=== PATIENT | male | born 1955 | race Caucasian/White ===

== ENCOUNTER 2020-01-11 08:48 | Inpatient (IN) | payer OTHER, SELFPAY ==
[2020-01-11] VITALS (12 sets, daily range): BP systolic 153–187; BP diastolic 75–103; PULSE 16–68; RESP 12–59; TEMP 35.9–36.8; O2SAT 97–99; BMI 26.0
--- NOTE | ~2020-01-11 | XR_ITS ---
XR chest 1V portable DATE: 01/11/2020 10:01 INDICATION: Chest pain TECHNIQUE: Portable AP chest on 01/11/2020 at 0958 hours COMPARISON: None FINDINGS: Normal heart size. Aortic arch calcification. No hilar or mediastinal enlargement. There is mild elevation of the right leaf of the diaphragm. No pulmonary infiltrate or consolidation, pleural effusion or pulmonary vascular congestion or pneumo thorax is detected. DEXA scoliosis and degenerative spurring of the thoracic spine. Osteoarthritic change at the included left glenohumeral joint. IMPRESSION: No active cardiopulmonary disease Reviewed, dictated and finalized at location A.
--- NOTE | 2020-01-11 08:59 | ECG_ITS ---
Measurements Intervals [place] Rate: 64 P: 14 DC: 187 QRS: -27 QRSD: 120 T: -12 QT: 400 QTc: 413 Interpretive Statements SINUS RHYTHM INTRAVENTRICULAR CONDUCTION DELAY VOLTAGE CRITERIA FOR LVH NONSPECIFIC ST & T-WAVE ABNORMALITY- INF/LAT LEADS BASELINE WANDER- I, II, V3 BORDERLINE ECG Electronically Signed On 01-11-2020 9:46:53 CDT by Hari Henry D.O.
--- NOTE | 2020-01-11 09:00 | ED.CHESTPAIN ---
HPI - Chest Pain General Chief Complaint: Chest Pain Stated Complaint: Chest Pain Time Seen by Provider: 01/11/20 08:51 Source: RN notes reviewed History of Present Illness HPI narrative: Patient presents emergency department from home for chest pain. Patient states that pain woke him from sleep this morning. He states pain was across the bilateral lower chest described as a pressure. Pain was associated with shortness of breath. States pain is improved at this time. He denies any fevers or chills abdominal pain nausea vomiting or any other symptoms. Patient states he does smoke and has a history of high blood pressure denies any previous cardiac history. Patient states the pain did not radiate. States he took his lisinopril this morning prior to coming into the emergency department Related Data Home Medications Medication Instructions Recorded Confirmed lisinopril 01/11/20 Allergies Allergy/AdvReac Type Severity Reaction Status Date / Time No Known Allergies Allergy Verified 01/11/20 09:11 Review of Systems Review of Systems: Narrative: Gen.: Denies fevers or chills ENT: Denies congestion Respiratory: Reports shortness of breath CV: Reports chest pain GI: Denies abdominal pain nausea, emesis or diarrhea Musculoskeletal: Denies back pain or muscle pain Neuro: Denies numbness, tingling, weakness or focal weakness Skin: Denies rash Except as documented, all other systems reviewed and negative [facility] Past Medical History Medical History (Updated 01/11/20 @ 10:19 by Lloyd Peña DO) Hypertension Social History Social History (Updated 01/11/20 @ 09:01 by Lloyd Peña DO) Smoking packs per day: 0.5 Smoking cigarettes per day: 10.0 Alcohol intake: current Gender identity (if verbalized by the patient): Male Exam Narrative: Exam Narrative: APPEARANCE: No acute distress, nontoxic, resting in bed EYES: EOMI HEENT: Normocephalic, atraumatic, OMM RESPIRATORY: No respiratory distress Clear to auscultation bilaterally with no rhonchi wheezing or rales. CARDIOVASCULAR: Regular rate and rhythm without murmurs rubs or gallops. ABDOMINAL: Soft, nondistended, mild tenderness epigastric region, no tenderness right upper quadrant, left upper quadrant, right lower quadrant left lower quadrant, rebound or guarding MUSCULOSKELETAl: Moves all extremities. No clubbing, cyanosis or edema. NEURO: Awake and alert. Following commands, speech normal, no focal deficits SKIN:: Warm, dry. No rashes lesions or abrasions PSYCHIATRIC: Normal affect/mood, Course Course Emergency Course: Patient states chest pain is resolved at this time Discussed with Dr. Corcoran presentation work-up. Agrees with consult. Request patient started metoprolol 25 mg every 12 as well as given dose of Lovenox in ED Discussed with Dr. Payan presentation and work-up agrees with admission at this time Discussed with patient and family results of workup and diagnosis. Discussed need for admission. Patient and family understand and agree to current treatment plan Vital Signs Vital signs: Vital Signs Temperature 98.2 F 01/11/20 09:05 Pulse Rate 64 01/11/20 09:05 Respiratory Rate 12 01/11/20 09:05 Blood Pressure 187/103 H 01/11/20 09:05 Pulse Oximetry 99 01/11/20 09:05 Temperature 98.2 F 01/11/20 09:05 Pulse Rate 62 01/11/20 09:48 Respiratory Rate 15 01/11/20 09:48 Blood Pressure 155/97 H 01/11/20 09:48 Pulse Oximetry 97 01/11/20 09:48 MDM - Chest Pain Lab Data Result diagrams: 01/11/20 09:06 01/11/20 09:06 Labs: Lab Results 01/11/20 01/11/20 01/11/20 Range/Units 09:06 09:06 09:06 WBC 5.9 (4.5-10.0) K/mm3 RBC 4.33 L (4.6-6.20) M/mm3 Hgb 15.0 (14.0-18.0) g/dL Hct 44.1 (42.0-52.0) % MCV 101.8 H (80-100) fl MCH 34.6 H (26-34) pg MCHC 34.0 (32-36) g/dl RDW 11.7 (11.5-14.5) % Plt Count 201 (150-375) k/mm3 MPV
[2020-01-11 09:11] LABS: Basophils Absolute Auto 0.1 K/mm3 (0.0-0.1); Eosinophils Absolute Auto 0.3 K/mm3 (0-0.3); Eosinophils Percent Auto 4.5 % (0-4.4); Hematocrit 44.1 % (42.0-52.0); Immature Granulocyte Absolute 0.01 K/mm3 (0.00-0.031); Immature Granulocyte Percent A 0.2 % (0-0.5); Lymphocytes Absolute Auto 1.62 K/mm3 (0.9-3.2); Lymphocytes Percent Auto 27.3 % (18.3-44.2); Mean Corpuscular Hemoglobin 34.6 pg (26-34); Mean Corpuscular Volume 101.8 fl (80-100); Mean Platelet Volume 9.4 fl (7.4-10.4); Monocytes Absolute Auto 0.6 K/mm3 (0.1-0.6); Monocytes Percent Auto 9.4 % (2.6-8.5); Neutrophils Absolute Auto 3.4 K/mm3 (1.3-6.7); Neutrophils Percent Auto 57.6 % (45.5-73.1); Platelet Count Result 201 k/mm3 (150-375); Red Blood Count 4.33 M/mm3 (4.6-6.20); Red Cell Distribution Width 11.7 % (11.5-14.5); White Blood Count 5.9 K/mm3 (4.5-10.0)
[2020-01-11 09:21] LABS: Prothrombin Time 13.1 Seconds (11.1-14.7)
[2020-01-11 09:22] LABS: Partial Thromboplastin Time 26.7 SECONDS (22.3-36.8)
[2020-01-11 09:25] LABS: Alanine Aminotransferase 24 U/L (4-50); Albumin Level 4.3 g/dL (3.5-5.1); Alkaline Phosphatase 83 U/L (38-126); Aspartate Amino Transferase 30 U/L (17-59); Bilirubin,Total 0.4 mg/dL (0.2-1.3); Blood Urea Nitrogen 14 mg/dL (9-20); Calcium 9.1 mg/dL (8.4-10.2); Carbon Dioxide 26 mmol/L (22-30); Chloride 105 mmol/L (98-107); Estimated CRCL calculation 78 ml/min; Estimated Glomerular Filt Rate > 60; Glucose 102 mg/dL (75-110); Lipase 300 U/L (23-300); Potassium 4.3 mmol/L (3.4-5.0); Sodium 139 mmol/L (137-145)
[2020-01-11 09:38] LABS: Troponin I 0.052 ng/mL (0.000-0.034)
--- NOTE | 2020-01-11 09:40 | ECG_ITS ---
Measurements Intervals [place] Rate: 60 P: 28 MD: 205 QRS: -20 QRSD: 106 T: 3 QT: 408 QTc: 409 Interpretive Statements SINUS RHYTHM BORDERLINE ST-T WAVE ABNORMALITY- INF/LAT LEADS BORDERLINE ECG Electronically Signed On 01-11-2020 9:47:54 CDT by Hari Henry D.O.
[2020-01-11] MEDS: ASPIRIN 81 MG CHEWABLE TABLET 324 MG PO (09:46)
[2020-01-11] MEDS: METOPROLOL TARTRATE 25 MG TABLET PO ×2 (10:25→21:54)
[2020-01-11] MEDS: ENOXAPARIN 100 MG/ML SYRINGE 93 MG SUB-Q (10:26)
--- NOTE | 2020-01-11 11:19 | ADMGEN ---
This patient, David Canales, was admitted to IMU Room 213-01 at 1120 on 01/11/2020. Patient/family oriented to hospital policies and general routines including ID bracelet, bed and alarms, visiting hours, pain management, procedures, bathroom and other care routines, personal items, smoking policy, room service/diet, and visiting hours. Valuables list has been completed. Information on how to activate the Rapid Response Team has been discussed. Patient/Family are encouraged to report perceived risks to care and to ask questions if they do not understand what they are told or what they should do.
[2020-01-11 12:12] LABS: Troponin I 0.193 ng/mL (0.000-0.034)
[2020-01-11 15:25] LABS: Troponin I 0.296 ng/mL (0.000-0.034)
[2020-01-11] MEDS: ACETAMINOPHEN 325 MG TABLET PO ×2 (16:02→21:54)
--- NOTE | 2020-01-11 16:29 | PM.IMPN ---
Progress Note: A&P Assessment and Plan (1) Acute non-ST elevation myocardial infarction (NSTEMI): Code(s): I21.4 - Non-ST elevation (NSTEMI) myocardial infarction Status: Acute Assessment and Plan: Elevated troponin, symptomatic patient. Pt has been given metoprolol and lovenox awaiting cardiology consultation. History of HTN, history of smoking and positive FH of mother and father had bypass. EKG shows- BORDERLINE ST-T WAVE ABNORMALITY- INF/LAT LEADS. BORDERLINE ECG Serial troponins, telemetry Metoprolol, ASA ad lovenox (2) Hypertension: Code(s): I10 - Essential (primary) hypertension Status: Acute Assessment and Plan: BP is 175/90 pt is on lisinopril continue to monitor BPs (3) Smoker: Code(s): F17.200 - Nicotine dependence, unspecified, uncomplicated Status: Acute Assessment and Plan: Pt is a smoker 1 pack a week , refuses nictone patch in the hospital Subjective Date/time seen: 01/11/20 16:29 Interval history: Pt had severe chest pain which woke him up @730 am. Pt felt it like a suffocation in his chest Never had chest pain like this before pt has had sinus infection and hayfever Has history of BP and shoulder pain Pt never had any cardiac work up before Pt denies cough, SOB or fever Pt feels better after metoprolol and lovenox given in ED Review of Systems Constitutional: Constitutional: Denies body ache(s), Denies chills and Denies fatigue Cardiovascular: Cardiovascular: Denies no additional cardiovascular complaints and Reports chest pain Respiratory: Respiratory: Denies cough, Denies dyspnea and Denies wheezing Gastrointestinal: Gastrointestinal: Denies abdominal pain Genitourinary: Genitourinary: Denies no additional male genitourinary complaints Musculoskeletal: Musculoskeletal: Reports no additional musculoskeletal complaints Comments: shoulder pains Neurologic: Denies system reviewed and no additional complaints, except as documented Psychiatric: Psychiatric: Denies no additional psychiatric complaints Exam Const: General: cooperative and healthy appearing; No in distress Nutritional Appearance: overweight Orientation/consciousness: oriented to person HENMT: Head: normocephalic Eyes: General: appearance normal, both eyes and all related structures Pupils: Equal, round and reactive pupils present Neck: Neck: supple Chest: Chest palpation & inspection: normal inspection of the chest Resp: Effort & Inspection: no respiratory distress Auscultation: no rhonchi and no wheezes Cardio: Jugular venous distension: no JVD Rate: regular rate Rhythm: regular rhythm Heart sounds: S1 normal heart sound present and S2 normal heart sound present GI: Inspection: normal to inspection GI Palp: No abdominal tenderness, No Guarding due to palpation present (GI) and No Hepatomegaly present Auscultation: normal bowel sounds : General: Yes no CVA tenderness Back/Spine/Pelvis: Back: no CVA tenderness Skin: General skin exam: normal color and dry skin Neuro: General: oriented to person Cranial nerves: Yes CN's II-XII intact bilaterally and Yes Equal, round and reactive pupils present Cognition (Neuro): normal cognition Speech: normal speech Motor exam (neuro): 5/5 motor strength present throughout Extrem: General: normal to inspection Psych: Appearance: grossly normal Mental Status: mental status grossly normal Objective Data Vital Signs Vital Signs: Vital Signs - 24 hr 01/11/20 09:05 01/11/20 09:48 01/11/20 10:25 Temperature 36.8 C Pulse Rate 68 62 66 Respiratory Rate 12 15 Blood Pressure 187/103 H 155/97 H Pulse Oximetry 99 97 01/11/20 11:28 01/11/20 12:00 01/11/20 14:00 Temperature 35.9 C L Pulse Rate 65 58 L 61 Respiratory Rate 12 Blood Pressure 175/90 H Pulse Oximetry 98 Intake/Output Intake/Output: Intake & Output 01/08/20 01/09/20 01/10/20 01/11/20 23:59 23:59 23:59 23:59 Intake
[2020-01-11] MEDS: ENOXAPARIN 100 MG/ML SYRINGE 87 MG SUB-Q (22:08)
[2020-01-12] VITALS (15 sets, daily range): BP systolic 150–196; BP diastolic 70–97; PULSE 46–68; RESP 16–18; TEMP 36.2–36.9; O2SAT 97–99
[2020-01-12 05:04] LABS: Basophils Absolute Auto 0.1 K/mm3 (0.0-0.1); Basophils Percent Auto 0.8 % (0.2-1.2); Eosinophils Absolute Auto 0.3 K/mm3 (0-0.3); Eosinophils Percent Auto 4.2 % (0-4.4); Hematocrit 39.8 % (42.0-52.0); Hemoglobin 13.2 g/dL (14.0-18.0); Immature Granulocyte Absolute 0.01 K/mm3 (0.00-0.031); Immature Granulocyte Percent A 0.2 % (0-0.5); Lymphocytes Absolute Auto 2.61 K/mm3 (0.9-3.2); Lymphocytes Percent Auto 40.8 % (18.3-44.2); Mean Corpuscular HGB Conc 33.2 g/dl (32-36); Mean Corpuscular Volume 102.6 fl (80-100); Mean Platelet Volume 9.8 fl (7.4-10.4); Monocytes Absolute Auto 0.7 K/mm3 (0.1-0.6); Monocytes Percent Auto 10.8 % (2.6-8.5); Neutrophils Absolute Auto 2.8 K/mm3 (1.3-6.7); Neutrophils Percent Auto 43.2 % (45.5-73.1); Platelet Count Result 181 k/mm3 (150-375); Red Blood Count 3.88 M/mm3 (4.6-6.20); Red Cell Distribution Width 11.6 % (11.5-14.5); White Blood Count 6.4 K/mm3 (4.5-10.0)
[2020-01-12 05:12] LABS: Alanine Aminotransferase 21 U/L (4-50); Albumin Level 3.8 g/dL (3.5-5.1); Alkaline Phosphatase 72 U/L (38-126); Aspartate Amino Transferase 26 U/L (17-59); Bilirubin,Total 0.2 mg/dL (0.2-1.3); Blood Urea Nitrogen 17 mg/dL (9-20); Calcium 8.6 mg/dL (8.4-10.2); Carbon Dioxide 29 mmol/L (22-30); Chloride 107 mmol/L (98-107); Estimated CRCL calculation 70 ml/min; Estimated Glomerular Filt Rate > 60; Glucose 91 mg/dL (75-110); Potassium 4.3 mmol/L (3.4-5.0); Sodium 138 mmol/L (137-145)
--- NOTE | 2020-01-12 05:24 | PC.NURSE ---
0500, Assumed care of patient from Ara Veras RN.
[2020-01-12] MEDS: ACETAMINOPHEN 325 MG TABLET PO ×3 (06:06→18:55)
[2020-01-12] MEDS: ASPIRIN 81 MG CHEWABLE TABLET 324 MG PO (08:44)
[2020-01-12] MEDS: lisinopriL 20 MG TABLET PO (08:44)
[2020-01-12] MEDS: ENOXAPARIN 100 MG/ML SYRINGE 87 MG SUB-Q ×2 (08:45→20:14)
--- NOTE | 2020-01-12 09:24 | PM.CNCAR ---
Assessment and Plan Additional Plan 64-year-old man with a history of hypertension, cigarette smoking enters the hospital after an episode of chest pain very concerning and quality for myocardial ischemia. Electrocardiogram is benign however his troponin did bump up slightly to 0.2. In this setting a coronary angiogram should be done the patient understands this and is agreeable. The reality however that this is a summer hol weekend would indicate the procedure will unlikely be done until Monday unless he becomes more unstable. He does have a apical systolic murmur as detailed above will request an echocardiogram to evaluate this by exam he appears to have some degree of mitral regurgitation Mario Corcoran MD [facility] History of Present Illness History of Present Illness Consult date/time: Date of service: 01/12/20 09:24 Consult reason: chest pain Reason For Visit: nstemi Narrative: This is a 64-year-old gentleman I am seeing at the request of the hospitalist because of a chest pain episode that occurred yesterday and for which he was seen in the emergency room here in the morning yesterday. The patient states he is not known to have any cardiac problems in the past other than a cardiac murmur. He states that he follows with Dr. Wakefield for his primary care needs. Yesterday morning he was in his usual state of health he woke up from sleep and started have some chest pain. He states he has not too concerned about having pain in the morning in his shoulders because he has a lot of degenerative shoulder arthritis and he would commonly have some pain and some numbness in the arms upon awakening if he sleeps in the wrong position. The pain yesterday was different however it was a bandlike pressure across the center of the chest and was unlike anything that he has had experienced in the past. Because of his history, risk factors and family history he became concerned about his cardiac status and came to the emergency room. In the emergency room by the time he got here this symptoms were already dissipating and according to the ER physician were completely alleviated after he received a GI cocktail. After admission to the IMU he has not had any further symptomatology he is resting comfortably this morning in his room when I entered to see him. He states that with physical activity he does not typically provoked any sense of chest pain pressure or heaviness. He is not degenerate not bothered by shortness of breath orthopnea PND or lower extremity edema. In the emergency room afterward his electrocardiogram demonstrates some minimal nonspecific T-wave abnormality but certainly no acute impressive ischemic or injury pattern. He has series of troponin levels done which have risen minimally to 0.2 on the 3rd sample. In the hospital he has been treated with aspirin, Lovenox and beta-blockers and he seems to be otherwise stable. He states that he has a history of coronary artery disease in both of his parents both underwent bypass surgery but neither of them at a premature age. He is a retired construction equipment operator. He smokes about a half a pack per day. Review of Systems Constitutional: Constitutional: Reports no additional constitutional complaints Eyes: Eyes: Reports no additional eye complaints ENT: Reports system reviewed and no additional complaints, except as documented Cardiovascular: Cardiovascular: Reports as per HPI Respiratory: Respiratory: Reports dyspnea Gastrointestinal: Gastrointestinal: Reports heartburn Genitourinary: Genitourinary: Reports no additional male genitourinary complaints Musculoskeletal: Musculoskeletal: Reports as per HPI and Reports arthralgias Integumentary/Breasts: Skin/Breast: Reports system reviewed and no additional complaints, except as docu Neurologic: Reports system reviewed and no additional complaints, except as documented Endocrine: Endocrine: Reports no additional endocrine complaint
[2020-01-12] MEDS: METOPROLOL TARTRATE 25 MG TABLET PO ×2 (09:30→20:15)
--- NOTE | 2020-01-12 15:12 | PM.IMPN ---
Progress Note: A&P Assessment and Plan (1) Acute non-ST elevation myocardial infarction (NSTEMI): Code(s): I21.4 - Non-ST elevation (NSTEMI) myocardial infarction Status: Acute Assessment and Plan: Elevated troponin, symptomatic patient. Pt has been given metoprolol and lovenox awaiting cardiology consultation. History of HTN, history of smoking and positive FH of mother and father had bypass. EKG shows- BORDERLINE ST-T WAVE ABNORMALITY- INF/LAT LEADS. BORDERLINE ECG Continue Metoprolol, ASA ad lovenox Pt to have Heart cath on monday under cardiology (2) Hypertension: Code(s): I10 - Essential (primary) hypertension Status: Acute Assessment and Plan: BP is 196/80 pt is on lisinopril continue to monitor BPs, slightly elevated (3) Smoker: Code(s): F17.200 - Nicotine dependence, unspecified, uncomplicated Status: Acute Assessment and Plan: Pt is a smoker 1 pack a week , refuses nictone patch in the hospital Subjective Date/time seen: 01/12/20 15:12 Interval history: Pt had severe chest pain which woke him up @730 am. No further chest pain here in hospital Admitted with NSTEMI Pt feels better after metoprolol and lovenox given in ED Review of Systems Constitutional: Constitutional: Denies body ache(s), Denies chills and Denies fatigue Cardiovascular: Cardiovascular: Denies no additional cardiovascular complaints, Reports chest pain and Denies dyspnea Respiratory: Respiratory: Denies cough, Denies dyspnea and Denies wheezing Gastrointestinal: Gastrointestinal: Denies abdominal pain Musculoskeletal: Musculoskeletal: Reports no additional musculoskeletal complaints Neurologic: Denies system reviewed and no additional complaints, except as documented Exam Const: General: cooperative and healthy appearing; No in distress Nutritional Appearance: overweight Orientation/consciousness: oriented to person HENMT: Head: normocephalic Eyes: General: appearance normal, both eyes and all related structures Pupils: Equal, round and reactive pupils present Neck: Neck: supple Chest: Chest palpation & inspection: normal inspection of the chest Resp: Effort & Inspection: no respiratory distress Auscultation: no rhonchi and no wheezes Cardio: Jugular venous distension: no JVD Rate: regular rate Rhythm: regular rhythm Heart sounds: S1 normal heart sound present and S2 normal heart sound present GI: Inspection: normal to inspection Auscultation: normal bowel sounds : General: Yes no CVA tenderness Back/Spine/Pelvis: Back: no CVA tenderness Skin: General skin exam: normal color and dry skin Neuro: General: oriented to person Cranial nerves: Yes CN's II-XII intact bilaterally and Yes Equal, round and reactive pupils present Cognition (Neuro): normal cognition Speech: normal speech Motor exam (neuro): 5/5 motor strength present throughout Extrem: General: normal to inspection Psych: Appearance: grossly normal Mental Status: mental status grossly normal Objective Data Vital Signs Vital Signs: Vital Signs - 24 hr 01/11/20 16:00 01/11/20 18:00 01/11/20 19:29 Temperature 36.3 C L 36.1 C L Pulse Rate 16 L 62 68 Respiratory Rate 59 H 18 Blood Pressure 153/81 H 160/75 H Pulse Oximetry 97 97 01/11/20 20:00 01/11/20 21:54 01/11/20 22:00 Temperature Pulse Rate 67 60 55 L Respiratory Rate Blood Pressure Pulse Oximetry 01/12/20 00:00 01/12/20 02:00 01/12/20 04:00 Temperature 36.9 C 36.9 C Pulse Rate 55 L 61 55 L Respiratory Rate 16 16 Blood Pressure 159/78 H 150/70 H Pulse Oximetry 99 99 01/12/20 06:00 01/12/20 08:00 01/12/20 09:30 Temperature 36.4 C Pulse Rate 60 55 L 66 Respiratory Rate 16 Blood Pressure 176/86 H Pulse Oximetry 97 01/12/20 10:00 01/12/20 12:00 01/12/20 14:00 Temperature 36.3 C L Pulse Rate 54 L 57 L 66 Respiratory Rate 18 Blood Pressure 196/87 H Pulse Oximetry 98
[2020-01-12 15:45] LABS: Cholesterol 181 mg/dL (0-200); HDL Direct 36 mg/dL; Triglycerides 408 mg/dL (<150)
[2020-01-12 15:55] LABS: LDL Cholesterol Direct 98 mg/dL
[2020-01-12] MEDS: DOCUSATE SODIUM 100 MG CAPSULE PO ×2 (17:06→20:15)
[2020-01-12] MEDS: AMLODIPINE BESYLATE 5 MG TABLET 10 MG PO (18:55)
[2020-01-13] VITALS (17 sets, daily range): BP systolic 120–167; BP diastolic 70–85; PULSE 49–72; RESP 16–20; TEMP 36.1–37; O2SAT 97–100
--- NOTE | 2020-01-13 | ECHO_ITS ---
Patient Info Name: David Canales Age: 64 years : 1955 Gender: Male Ht: 72 in Wt: 191 lbs BSA: 2.11 m2 HR: 65 bpm BP: 145 / 85 mmHg Heart Rhythm: Sinus Rhythm Technical Quality: Good Exam Date: 01/13/2020 10:08 AM Exam Location: [facility] Patient Status: Inpatient Admit Date: 01/12/2020 Staff Ordering Physician: Mario Corcoran MD Cleat Feeder: Christophe Gallagher RDCS Attending Provider: Stacey Mcdonough MD Referring Physician: Nilo COREAS; Exam Type: CA echo doppler color flow Study Info Indications I21.4 - Non-ST elevation (NSTEMI) myocardial infarction Complete two-dimensional, color flow and Doppler transthoracic echocardiogram is performed. Strain analysis performed. History/Risk Factors NSTEMI; HTN, chest pain, murmur. Summary 1. There is mild concentric increased left ventricular wall thickness. 2. The left ventricular diastolic function is grade I diastolic dysfunction. 3. Left ventricular systolic function is normal, estimated at 50-55%. 4. There is trace mitral valve regurgitation. Left Ventricle Left ventricular chamber dimension is normal. Left ventricular systolic function is normal, estimated at 50-55%. There is mild concentric increased left ventricular wall thickness. The left ventricular diastolic function is grade I diastolic dysfunction. Right Ventricle Right ventricular chamber dimension is normal. Left Atria Left atrial chamber dimension is normal. Right Atria Right atrial chamber dimension is normal. Aortic Valve The aortic valve is trileaflet. There is mild aortic valve sclerosis. Pulmonic Valve The pulmonic valve is not well visualized. Mitral Valve The mitral valve has normal leaflets. There is trace mitral valve regurgitation. Tricuspid Valve The tricuspid valve leaflets are normal. Pericardium/Pleural The pericardium appears normal. Aorta The aortic root size at the sinus of Valsalva is normal. Left Ventricular Outflow Tract Name Value Normal LVOT 2D LVOT Diameter 2.2 cm LVOT Doppler LVOT Peak Gradient 3 mmHg LVOT Mean Gradient 2 mmHg LVOT VTI 18 cm LVOT VTI/AV VTI Ratio 0.7 LVOT Stroke Volume 70 ml LVOT CO 4.2 l/min LVOT CI 2.0 l/min/m2 Mitral Valve Name Value Normal MV Doppler MV Decel [place] 165 cm/s2 MV PHT 96 ms MV Area (PHT) 2.3 cm2 4.0-5.0 MV Diastolic Function MV E Peak Velocity 55 cm/s MV A Peak Velocity 73 cm/
[2020-01-13] MEDS: ACETAMINOPHEN 325 MG TABLET PO ×4 (08:54→22:28)
[2020-01-13] MEDS: ASPIRIN 81 MG CHEWABLE TABLET 324 MG PO (08:55)
[2020-01-13] MEDS: AMLODIPINE BESYLATE 5 MG TABLET 10 MG PO (08:55)
[2020-01-13] MEDS: METOPROLOL TARTRATE 25 MG TABLET PO ×2 (08:55→20:54)
[2020-01-13] MEDS: lisinopriL 20 MG TABLET PO (08:55)
[2020-01-13] MEDS: DOCUSATE SODIUM 100 MG CAPSULE PO ×2 (08:56→20:54)
[2020-01-13] MEDS: ENOXAPARIN 100 MG/ML SYRINGE 87 MG SUB-Q ×2 (08:56→20:55)
--- NOTE | 2020-01-13 10:06 | PM.PNCARD ---
Progress Note: A&P Additional Plan No change in medical regimen. Patient is stable. Plans for coronary angiography tomorrow Obviously further recommendation/plans to be pending those results. Mario Corcoran MD [facility] Subjective Date/time seen: Date of service: 01/13/20 10:06 Interval history: 64-year-old male with: Intermittent chest pain syndrome largely atypical of angina but associated with modest rise in troponin. For this reason angiography has been recommended and will be done tomorrow morning. Patient is comfortable today watching television when and to the room to see him and offers no complaints Exam Const: General: comfortable and no acute distress HENMT: Mouth: Yes moist mucous membranes Eyes: Sclera: sclerae normal Pupils: Equal, round and reactive pupils present Neck: Neck: supple and no JVD Thyroid: thyroid normal Resp: Effort & Inspection: normal respiratory effort Auscultation: clear to auscultation bilaterally Cardio: Rate: regular rate Rhythm: regular rhythm Other: PMI nondisplaced no murmur no gallop no rub GI: Auscultation: normal bowel sounds Skin: General skin exam: normal color Neuro: Cognition (Neuro): normal cognition Extrem: General: normal to inspection Objective Data Vital Signs Vital Signs: Vital Signs - 24 hr 01/12/20 12:00 01/12/20 14:00 01/12/20 16:00 Temperature 36.3 C L 36.2 C L Pulse Rate 57 L 66 56 L Respiratory Rate 18 16 Blood Pressure 196/87 H 177/96 H Pulse Oximetry 98 98 01/12/20 18:00 01/12/20 19:58 01/12/20 20:00 Temperature 36.2 C L Pulse Rate 55 L 60 58 L Respiratory Rate 16 Blood Pressure 167/97 H Pulse Oximetry 98 01/12/20 20:15 01/12/20 22:00 01/13/20 00:00 Temperature 36.3 C L Pulse Rate 57 L 52 L 57 L Respiratory Rate 16 Blood Pressure 159/80 H Pulse Oximetry 100 01/13/20 02:00 01/13/20 03:50 01/13/20 04:00 Temperature 36.1 C L Pulse Rate 54 L 60 49 L Respiratory Rate 16 Blood Pressure 143/80 H Pulse Oximetry 100 01/13/20 06:00 01/13/20 08:00 01/13/20 08:55 Temperature 36.8 C Pulse Rate 54 L 60 67 Respiratory Rate 18 Blood Pressure 145/85 H Pulse Oximetry 100 Intake/Output Intake/Output: Intake & Output 01/10/20 01/11/20 01/12/20 01/13/20 23:59 23:59 23:59 23:59 Intake Total 970 1620 960 Output Total 400 2605 1999 Balance 453 -[phone] -[phone] Meds/Results Medications: Active Medications Generic Name Dose Route Start Last Admin Trade Name Freq PRN Reason Stop Dose Admin Acetaminophen 325 mg 01/12/20 14:41 01/13/20 08:54 Tylenol Tablet PO 325 mg Q6H PRN Administration Mild Pain (1-3) or Fever Amlodipine Besylate 10 mg 01/13/20 09:00 01/13/20 08:55 Norvasc PO 10 mg DAILY MARIAELENA Administration Aspirin 324 mg 01/12/20 08:00 01/13/20 08:55 Aspirin Chewable PO 324 mg DAILY@0800 MARIAELENA Administration Docusate Sodium 100 mg 01/12/20 21:00 01/13/20 08:56 Colace Capsule PO 100 mg Q12HR MARIAELENA Administration Enoxaparin Sodium 87 mg 01/11/20 21:25 01/13/20 08:56 Lovenox SUB-Q 87 mg Q12HR MARIAELENA Administration Lisinopril 20 mg 01/12/20 09:00 01/13/20 08:55 Prinivil PO 20 mg DAILY MARIAELENA Administration Metoprolol Tartrate 25 mg 01/11/20 21:00 01/13/20 08:55 Lopressor PO 25 mg Q12HR MARIAELENA Administration Oxycodone HCl 2.5 mg 01/13/20 00:19 01/13/20 08:54 Roxicodone Ir Tablet PO 2.5 mg Q6HR PRN Administration Pain Rated 7-10 Oxycodone HCl 5 mg 01/13/20 00:19 01/13/20 08:53 Roxicodone Ir Tablet PO 5 mg Q6HR PRN Administration Pain Rated 7-10 Radiology Results: ITS Impressions Chest X-Ray 01/11/20 10:17 IMPRESSION: No active cardiopulmonary disease Labs Labs: Laboratory Results - last 24 hr 01/12/20 15:29 Triglycerides 408 H Cholesterol 181 LDL Cholesterol Direct 98 HDL Direct 36 Quality VTE Prophylaxis VTE prophylaxis: pharma
--- NOTE | 2020-01-13 12:08 | PM.IMPN ---
Progress Note: A&P Assessment and Plan (1) Acute non-ST elevation myocardial infarction (NSTEMI): Code(s): I21.4 - Non-ST elevation (NSTEMI) myocardial infarction Status: Acute Assessment and Plan: Elevated troponin, symptomatic patient. Pt has been given metoprolol and lovenox History of HTN, history of smoking and positive FH of mother and father had bypass. EKG shows- BORDERLINE ST-T WAVE ABNORMALITY- INF/LAT LEADS. BORDERLINE ECG Continue Metoprolol, ASA ad lovenox Pt to have Heart cath on monday under cardiology cholesterol test trilycerides are slightly up ptaware pt had echo today MR murmur found on examine to day wait full echo report (2) Hypertension: Code(s): I10 - Essential (primary) hypertension Status: Acute Assessment and Plan: BP is 130/70 pt is on lisinopril and norvasc and oral lasix and oral metroprolol (3) Smoker: Code(s): F17.200 - Nicotine dependence, unspecified, uncomplicated Status: Acute Assessment and Plan: Pt is a smoker 1 pack a week , refuses nictone patch in the hospital Subjective Date/time seen: 01/13/20 12:08 Interval history: Pt had severe chest pain which woke him up @730 am. No further chest pain here in hospital Admitted with NSTEMI Pt feels better after metoprolol and lovenox given in ED Pt having heart cath tomorrow Review of Systems Review of Systems: All systems reviewed & are unremarkable except as noted in HPI and below Cardiovascular: Cardiovascular: Denies chest pain, Denies chest pain at rest, Denies dyspnea and Denies dyspnea on exertion Respiratory: Respiratory: Denies chest congestion, Denies dyspnea, Denies dyspnea on exertion and Denies wheezing Exam Const: General: cooperative and healthy appearing; No in distress Nutritional Appearance: overweight Orientation/consciousness: oriented to person HENMT: Head: normocephalic Eyes: General: appearance normal, both eyes and all related structures Pupils: Equal, round and reactive pupils present Neck: Neck: supple Chest: Chest palpation & inspection: normal inspection of the chest Resp: Effort & Inspection: no respiratory distress Auscultation: no rhonchi and no wheezes Cardio: Jugular venous distension: no JVD Rate: regular rate Rhythm: regular rhythm Heart sounds: S1 normal heart sound present and S2 normal heart sound present GI: Inspection: normal to inspection Auscultation: normal bowel sounds : General: Yes no CVA tenderness Back/Spine/Pelvis: Back: no CVA tenderness Skin: General skin exam: normal color and dry skin Neuro: General: oriented to person Cranial nerves: Yes CN's II-XII intact bilaterally and Yes Equal, round and reactive pupils present Cognition (Neuro): normal cognition Speech: normal speech Motor exam (neuro): 5/5 motor strength present throughout Extrem: General: normal to inspection Psych: Appearance: grossly normal Mental Status: mental status grossly normal Objective Data Vital Signs Vital Signs: Vital Signs - 24 hr 01/12/20 14:00 01/12/20 16:00 01/12/20 18:00 Temperature 36.2 C L Pulse Rate 66 56 L 55 L Respiratory Rate 16 Blood Pressure 177/96 H Pulse Oximetry 98 01/12/20 19:58 01/12/20 20:00 01/12/20 20:15 Temperature 36.2 C L Pulse Rate 60 58 L 57 L Respiratory Rate 16 Blood Pressure 167/97 H Pulse Oximetry 98 01/12/20 22:00 01/13/20 00:00 01/13/20 02:00 Temperature 36.3 C L Pulse Rate 52 L 57 L 54 L Respiratory Rate 16 Blood Pressure 159/80 H Pulse Oximetry 100 01/13/20 03:50 01/13/20 04:00 01/13/20 06:00 Temperature 36.1 C L Pulse Rate 60 49 L 54 L Respiratory Rate 16 Blood Pressure 143/80 H Pulse Oximetry 100 01/13/20 08:00 01/13/20 08:55 01/13/20 10:00 Temperature 36.8 C Pulse Rate 62 67 66 Respiratory Rate 18 Blood Pressure 145/85 H Pulse Oximetry 100 01/13/20 11:58 Temperature 37.0 C Pulse Rate 57 L Resp
[2020-01-14] VITALS (24 sets, daily range): BP systolic 124–167; BP diastolic 59–106; PULSE 55–82; RESP 14–20; TEMP 36–36.9; O2SAT 97–100
[2020-01-14] MEDS: ACETAMINOPHEN 325 MG TABLET PO (05:25)
[2020-01-14] MEDS: AMLODIPINE BESYLATE 5 MG TABLET 10 MG PO (08:19)
[2020-01-14] MEDS: METOPROLOL TARTRATE 25 MG TABLET PO ×2 (08:20→19:49)
[2020-01-14] MEDS: DOCUSATE SODIUM 100 MG CAPSULE PO ×2 (08:20→19:47)
[2020-01-14] MEDS: lisinopriL 20 MG TABLET PO (08:20)
[2020-01-14] MEDS: ASPIRIN 81 MG CHEWABLE TABLET 324 MG PO (08:34)
--- NOTE | 2020-01-14 08:42 | WPDMODSED ---
Moderate Sedation Note-Pt Data Patient Data Allergies Allergy/AdvReac Type Severity Reaction Status Date / Time No Known Allergies Allergy Verified 01/11/20 09:11 Home Medications Medication Instructions Recorded Confirmed Type lisinopril 20 mg PO DAILY 01/11/20 01/11/20 History oxycodone-acetaminophen 1 tablet PO TID 01/11/20 01/11/20 History Current Medications: Active Medications Acetaminophen (Tylenol Tablet) 325 mg PO Q4HR PRN PRN Reason: PAIN 7-10 Last Admin: 01/14/20 05:25 Dose: 325 mg Documented by: Amlodipine Besylate (Norvasc) 10 mg PO DAILY [facility] Last Admin: 01/14/20 08:19 Dose: 10 mg Documented by: Aspirin (Aspirin Chewable) 324 mg PO DAILY@0800 [facility] Last Admin: 01/14/20 08:34 Dose: 324 mg Documented by: Docusate Sodium (Colace Capsule) 100 mg PO Q12HR [facility] Last Admin: 01/14/20 08:20 Dose: 100 mg Documented by: Enoxaparin Sodium (Lovenox) 87 mg SUB-Q Q12HR [facility] Last Admin: 01/14/20 08:14 Dose: Not Given Documented by: Lisinopril (Prinivil) 20 mg PO DAILY [facility] Last Admin: 01/14/20 08:20 Dose: 20 mg Documented by: Metoprolol Tartrate (Lopressor) 25 mg PO Q12HR [facility] Last Admin: 01/14/20 08:20 Dose: 25 mg Documented by: Oxycodone HCl (Roxicodone Ir Tablet) 2.5 mg PO Q4HR PRN PRN Reason: Pain Rated 7-10 Last Admin: 01/14/20 05:24 Dose: 2.5 mg Documented by: Oxycodone HCl (Roxicodone Ir Tablet) 5 mg PO Q4HR PRN PRN Reason: Pain Rated 7-10 Last Admin: 01/14/20 05:25 Dose: 5 mg Documented by: Sedation/Anesthesia: No previous sedation/anesthesia problems (including family history). [facility] Past Medical History Medical History (Updated 01/11/20 @ 10:19 by Lloyd Peña DO) Hypertension Family History Family History (Updated 01/11/20 @ 11:44 by Patricia Wetzel RN) Mother Congestive heart failure Father Congestive heart failure Sibling Congestive heart failure Social History Social History (Updated 01/11/20 @ 09:01 by Lloyd Peña DO) Smoking packs per day: 0.5 Smoking cigarettes per day: 10.0 Years smoked: 30 Smoking pack-years: 15.00 Smoking status: Light tobacco smoker Tobacco type: cigarettes Alcohol intake: current Drinks per week: 6 Substance use: never Gender identity (if verbalized by the patient): Male Spiritual care concerns: No Mod Sed Physical Exam Physical Exam Pre Procedural Exam: Normal: Airway Hours since solid foods: 10 Hours since liquid intake: 10 Internal Medicine - PN: Obj Da Vital Signs Vital Signs: Vital Signs - 24 hr 01/13/20 08:55 01/13/20 10:00 01/13/20 11:58 Temperature 37.0 C Pulse Rate 67 66 57 L Respiratory Rate 18 Blood Pressure 132/75 Pulse Oximetry 97 01/13/20 12:00 01/13/20 14:00 01/13/20 16:00 Temperature 36.6 C Pulse Rate 57 L 65 67 Respiratory Rate 20 Blood Pressure 120/70 Pulse Oximetry 97 01/13/20 18:00 01/13/20 19:16 01/13/20 20:00 Temperature 36.7 C Pulse Rate 67 60 69 Respiratory Rate 20 Blood Pressure 167/85 H Pulse Oximetry 99 01/13/20 20:54 01/13/20 21:58 01/14/20 00:00 Temperature 36.6 C Pulse Rate 72 57 L 61 Respiratory Rate 20 Blood Pressure 124/59 L Pulse Oximetry 98 01/14/20 02:00 01/14/20 04:00 01/14/20 06:00 Temperature 36.6 C Pulse Rate 57 L 57 L 56 L Respiratory Rate 18 Blood Pressure 153/81 H Pulse Oximetry 99 01/14/20 08:00 01/14/20 08:20 Temperature 36.2 C L Pulse Rate 65 65 Respiratory Rate 18 Blood Pressure 131/71 Pulse Oximetry 100 Intake/Output Intake/Output: Intake & Output 01/11/20 01/12/20 01/13/20 01/14/20 23:59 23:59 23:59 23:59 Intake Total 970 1620 3000 300 Output Total 400 2375 2250 250 Balance 570 -75 750 50 Meds/Results Medications: Active Medications Generic Name Dose Route Start Last Admin Trade Name Freq PRN Reason Stop Dose Admin Acetaminophen 325 mg 01/13/20 18:44 01/14/20 05:25 Tylenol Tablet PO 325 mg
--- NOTE | 2020-01-14 08:42 | WPDHPUPDATE1 ---
History and Physical Update Update Date/Time: 01/14/20 08:42 History and Physical has been reviewed, including an updated exam of the patient. There are NO changes in the patient's condition. Risks, benefits, and alternatives have been discussed and questions answered. Patient agrees to proceed with procedure.
--- NOTE | 2020-01-14 08:43 | WPDCARDPROC ---
Cardiac Cath Procedure Note Date of procedure:: 01/14/20 Performing physician:: Renan Vazquez MD Procedure Procedure note:: CARDIAC CATHETERIZATION AND PERCUTANEOUS CORONARY INTERVENTION REPORT DATE OF PROCEDURE: 01/14/2020 INDICATION FOR PROCEDURE: Non ST-elevation [place] BRIEF CLINICAL HISTORY: 64-year-old male with hypertension, tobacco abuse; no known prior cardiac history was admitted to [facility] on 01/11/2020 with complaints of anginal chest pain associated with shortness of breath. EKG shows sinus rhythm with ST-T abnormalities in the inferolateral leads. Troponins were mildly elevated with current peak troponin level of 0.296. Patient was referred for cardiac catheterization. Benefits, risks and alternatives of the procedure were discussed with the patient and informed consent was taken prior to the procedure. PROCEDURES PERFORMED: 1. Left heart catheterization- Selective left and right coronary angiogram; left ventriculogram and hemodynamic assessment 2. Percutaneous coronary intervention- Balloon angioplasty and stenting of high-grade stenosis in the OM1 branch of LCX using 2.75 x 30 mm Biotronik Orsiro sirolimus eluting stent. 3. Selective right common femoral angiogram and deployment of Angio-Seal hemostatic device 4. Moderate sedation-CPT code 13565 MODERATE SEDATION: Midazolam 2 mg; fentanyl 50 mcg. Start time 0852 , Stop time 0936 ; Total [id number] time 44 minutes; Laura Trujillo RN was trained observer for moderate sedation. ACCESS SITE: Right common femoral artery PROCEDURE NOTE: After obtaining informed consent, patient was brought to catheterization lab and prepped and draped in a usual sterile manner. After local anesthesia with lidocaine, right common femoral artery access was taken with micropuncture needle followed by insertion of a 5 [place] sheath. Selective left and right coronary angiogram was performed using 5 [place] JL5 and JR4 catheters respectively. Orthogonal views were taken. Next, a 5 [place] pigtail catheter was advanced in the LV cavity and was flushed with normal saline. LV pressure measurement was performed. After this, left ventriculogram was performed. The catheter was flushed again, and gradient across the aortic valve was measured on the pullback of the catheter. Selective right common femoral angiogram was performed after PCI followed by successful deployment of Angio-Seal vascular closure device. Patient tolerated procedure well without any immediate procedure related complications. FINDINGS: LEFT MAIN CORONARY:The left main coronary artery is a large caliber vessel, no angiographic significant focal stenosis seen. The vessel bifurcates into LAD left circumflex branches. LEFT ANTERIOR DESCENDING ARTERY: The LAD is a medium to large caliber vessel in the proximal segment with minor irregularities in the upper mid segment. The vessel tapers, and becomes a small caliber vessel distally, and reaches the LV apex. The diagonal branches are small to medium-sized vessels with mild diffuse disease. Hetb-pl-vmbqy collaterals are seen supplying the distal RCA. LEFT CIRCUMFLEX ARTERY: The left circumflex artery is a medium to large caliber vessel in the proximal segment with mild diffuse disease. OM1 branch is a medium-sized vessel and has about 80% stenosis in the mid segment just before it bifurcates into 2 subbranches. OM2 branch is a medium-sized vessel without significant focal stenosis. RIGHT CORONARY ARTERY: The right coronary artery has diffuse disease in the proximal segment; and has chronic total occlusion in the mid segment. There is faint filling of the distal branches through bridging collaterals. Also, xvsv-ft-[id number] collaterals are seen supplying the terminal branches of the RCA. LEFT VENTRICULOGRAM: LV systolic function is overall preserved, ejection fraction visually estimated at about 55-60%. LVEDP 11 mmHg. HEMODYNAMIC ASSESSMENT: Opening pressure 136/62 mmHg , closin
--- NOTE | 2020-01-14 11:06 | SUR.PHASEII ---
1100-pt transported back to IMU via stretcher. Groin soft and non-tender with strong right pedal pulse before and after transport. Groin and pulse inspected by HAILY Savage. pt resting quietly. Will continue to monitor.
[2020-01-14] MEDS: SODIUM CHLORIDE 0.9% IV 1,000 ML 125 ML IV CONT (11:42)
--- NOTE | 2020-01-14 18:06 | PM.IMPN ---
Progress Note: A&P Assessment and Plan (1) Acute non-ST elevation myocardial infarction (NSTEMI): Code(s): I21.4 - Non-ST elevation (NSTEMI) myocardial infarction Status: Acute Assessment and Plan: Elevated troponin, symptomatic patient. Pt has been given metoprolol and lovenox History of HTN, history of smoking and positive FH of mother and father had bypass. EKG shows- BORDERLINE ST-T WAVE ABNORMALITY- INF/LAT LEADS. BORDERLINE ECG Continue Metoprolol, ASA ad lovenox Pt to have Heart cath on monday under cardiology cholesterol test trilycerides are slightly up ptaware pt had echo today MR murmur found on examine to day wait full echo report 01/14/20 18:06 With non STEMI was taken to the cardiac cath today is found to have severe coronary artery disease a stent was placed and angioplasty was done, patient is a preserved LV function with a EF 55 %, currently patient states is feeling much better compared to when he arrived, denies any chest pain shortness of breath palpitation fever or chills (2) Hypertension: Code(s): I10 - Essential (primary) hypertension Status: Acute Assessment and Plan: BP is 130/70 pt is on lisinopril and norvasc and oral lasix and oral metroprolol (3) Smoker: Code(s): F17.200 - Nicotine dependence, unspecified, uncomplicated Status: Acute Assessment and Plan: Pt is a smoker 1 pack a week , refuses nictone patch in the hospital Subjective Date/time seen: 01/14/20 18:06 With non STEMI was taken to the cardiac cath today is found to have severe coronary artery disease a stent was placed and angioplasty was done, patient is a preserved LV function with a EF 55 %, currently patient states is feeling much better compared to when he arrived, denies any chest pain shortness of breath palpitation fever or chills Review of Systems Review of Systems: All systems reviewed & are unremarkable except as noted in HPI and below Exam Const: General: comfortable and no acute distress HENMT: General nose exam: Normal nares present Eyes: General: appearance normal, both eyes and all related structures Sclera: sclerae normal Neck: Neck: supple Resp: Effort & Inspection: normal respiratory effort Auscultation: clear to auscultation bilaterally Cardio: Rate: regular rate Rhythm: regular rhythm GI: Auscultation: normal bowel sounds Skin: General skin exam: normal color Neuro: Speech: normal speech Sensory Exam: normal sensation Extrem: General: normal to inspection Psych: Mental Status: mental status grossly normal Affect: normal affect Objective Data Vital Signs Vital Signs: Vital Signs - 24 hr 01/13/20 19:16 01/13/20 20:00 01/13/20 20:54 Temperature 98.1 F Pulse Rate 60 69 72 Pulse Rate [Bilateral Pedal (Dorsalis Pedis) Palpation] Respiratory Rate 20 Blood Pressure 167/85 H Pulse Oximetry 99 01/13/20 21:58 01/14/20 00:00 01/14/20 02:00 Temperature 97.9 F Pulse Rate 57 L 61 57 L Pulse Rate [Bilateral Pedal (Dorsalis Pedis) Palpation] Respiratory Rate 20 Blood Pressure 124/59 L Pulse Oximetry 98 01/14/20 04:00 01/14/20 06:00 01/14/20 08:00 Temperature 97.8 F 97.1 F L Pulse Rate 57 L 56 L 64 Pulse Rate [Bilateral Pedal (Dorsalis Pedis) Palpation] Respiratory Rate 18 18 Blood Pressure 153/81 H 131/71 Pulse Oximetry 99 100 01/14/20 08:20 01/14/20 09:50 01/14/20 10:00 Temperature Pulse Rate 65 60 64 Pulse Rate [Bilateral Pedal (Dorsalis Pedis) Palpation] 64 Respiratory Rate 18 14 Blood Pressure 142/78 H 152/78 H Pulse Oximetry 100 100 01/14/20 10:15 01/14/20 10:30 01/14/20 10:58 Temperature 96.8 F L Pulse Rate 64 57 L 58 L Pulse Rate [Bilateral Pedal (Dorsalis Pedis) Palpation] Respiratory Rate 14 14 Blood Pressure 144/106 H 140/82 167/81 H Pulse Oximetry 100 99 100 01/14/20 11:27 01/14/20 11:59 01/14/20 12:00 Temperature 97.3 F L Pulse Rate 61 66 79
--- NOTE | 2020-01-14 18:52 | PC.NURSE ---
Notified Dr Moura and Dr. Ford regarding patients decreased ability to communicate. Dr Moura ordered head CT. Dr Moura also ordered cardiology consult and consult with Dr. Tavarez. Head CTA and doppler of corotids ordered.
[2020-01-14] MEDS: TICAGRELOR 90 MG TABLET PO (19:49)
[2020-01-15] VITALS (8 sets, daily range): BP systolic 125–151; BP diastolic 78–91; PULSE 57–80; RESP 18; TEMP 36.6–36.7; O2SAT 100
[2020-01-15] MEDS: METOPROLOL TARTRATE 25 MG TABLET PO (08:04)
[2020-01-15] MEDS: TICAGRELOR 90 MG TABLET PO (08:04)
[2020-01-15] MEDS: DOCUSATE SODIUM 100 MG CAPSULE PO (08:05)
[2020-01-15] MEDS: ASPIRIN 81 MG ENTERIC TABLET PO (08:05)
[2020-01-15] MEDS: lisinopriL 20 MG TABLET PO (08:05)
[2020-01-15] MEDS: ATORVASTATIN 40 MG TABLET 80 MG PO (08:05)
--- NOTE | 2020-01-15 10:55 | PM.PNCARD ---
Progress Note: A&P Assessment and Plan (1) Acute non-ST elevation myocardial infarction (NSTEMI): Code(s): I21.4 - Non-ST elevation (NSTEMI) myocardial infarction Status: Acute Assessment and Plan: Troponin peak 0.296 Cardiac cath 01/14/2020: chronic total occlusion mid RCA with [id number]-hbxuk collaterals; about 80% stenosis OM1 branch of LCX; mild diffuse disease LCX. Preserved LV systolic function, ejection fraction 55-60%, LVEDP 11 mmHg. Proceeded on to PCI-balloon angioplasty and stenting of high-grade stenosis in the OM1 branch of LCX using a 2.75 x 13 mm Biotronik Orsiro sirolimus eluting stent. Monitored overnight with no arrhythmias. No chest discomfort or shortness of breath. Right groin site without swelling or bleeding. Scant amount of ecchymosis at the lateral edge of the dressing. No femoral bruit. Distal pulses intact. Continue aspirin, Brilinta, atorvastatin, lisinopril and Metoprolol succinate (2) Smoker: Code(s): F17.200 - Nicotine dependence, unspecified, uncomplicated Status: Acute Assessment and Plan: Smoking cessation counseling done (3) Hypertension: Code(s): I10 - Essential (primary) hypertension Status: Acute Assessment and Plan: Elevated at times but will up titrate medications as outpatient if need Additional Plan OK to discharge from cardiac standpoint See discharge instructions for follow-up Plan discussed with Dr Sarah Gr 01/15/2020 Subjective Date/time seen: 01/15/20 10:55 Interval history: Follow up for:NSTEMI Date of service: 01/15/2020 Subjective: Denies chest discomfort shortness of breath, lightheadedness or palpitations. Review of Systems Constitutional: Constitutional: Denies fever(s) Eyes: Eyes: Denies blurry vision ENT: Reports Normal hearing present, Denies dizziness and Denies epistaxis Cardiovascular: Cardiovascular: Denies chest pain at rest, Denies chest pain with activity, Denies leg edema, Denies lightheadedness and Denies dyspnea Respiratory: Respiratory: Denies dyspnea Gastrointestinal: Gastrointestinal: Denies heartburn Genitourinary: Genitourinary: Denies hematuria Musculoskeletal: Musculoskeletal: Reports arthralgias Integumentary/Breasts: Skin/Breast: Denies erythema and Denies rash Neurologic: Reports Normal hearing present and Denies dizziness Psychiatric: Psychiatric: Denies depression Endocrine: Endocrine: Denies fatigue Hematologic/Lymphatic: Hematologic/Lymphatic: Denies easy bleeding and Denies easy bruising Allergic/Immunologic: Allergic/Immunologic: Denies lip swelling Exam Const: General: comfortable and no acute distress HENMT: Mouth: Yes moist mucous membranes Eyes: Sclera: sclerae normal Pupils: Equal, round and reactive pupils present Neck: Neck: supple and no JVD Resp: Effort & Inspection: normal respiratory effort Auscultation: clear to auscultation bilaterally Cardio: Jugular venous distension: no JVD Rate: regular rate Rhythm: regular rhythm Heart sounds: no murmurs Peripheral pulses: Peripheral pulses 2+ throughout Other: Right groin site without swelling or bleeding. Minimal amount of ecchemosis at the lateral edge of dressing. No femoral bruit. Distal pulse intact GI: GI Palp: Yes Soft to palpation Auscultation: normal bowel sounds Skin: General skin exam: normal color Neuro: Cranial nerves: Yes Equal, round and reactive pupils present Cognition (Neuro): normal cognition Extrem: General: normal to inspection and no pedal edema Psych: Appearance: grossly normal and well kempt Mental Status: mental status grossly normal Speech and movement: Normal speech and movement present Affect: normal affect Attitude: cooperative Thought process: Normal thought process present Thought content: Yes Normal thought content present Insight: Good insight present (Psych)
--- NOTE | 2020-01-15 11:36 | PM.DS ---
DS: Admitting Diagnosis Admitting Diagnosis Admitting Diagnosis: Non-ST elevation (NSTEMI) myocardial infarction DS: Discharge Diagnosis Discharge Diagnosis (1) Acute non-ST elevation myocardial infarction (NSTEMI): Code(s): I21.4 - Non-ST elevation (NSTEMI) myocardial infarction Status: Acute Assessment and Plan: Elevated troponin, symptomatic patient. Pt has been given metoprolol and lovenox History of HTN, history of smoking and positive FH of mother and father had bypass. EKG shows- BORDERLINE ST-T WAVE ABNORMALITY- INF/LAT LEADS. BORDERLINE ECG Continue Metoprolol, ASA ad lovenox Pt to have Heart cath on monday under cardiology cholesterol test trilycerides are slightly up ptaware pt had echo today MR murmur found on to day wait full echo report 01/14/20 18:06 With non STEMI was taken to the cardiac cath today is found to have severe coronary artery disease a stent was placed and angioplasty was done, patient is a preserved LV function with a EF 55 %, currently patient states is feeling much better compared to when he arrived, denies any chest pain shortness of breath palpitation fever or chills (2) Hypertension: Code(s): I10 - Essential (primary) hypertension Status: Acute Assessment and Plan: BP is 130/70 pt is on lisinopril and norvasc and oral lasix and oral metroprolol (3) Smoker: Code(s): F17.200 - Nicotine dependence, unspecified, uncomplicated Status: Acute Assessment and Plan: Pt is a smoker 1 pack a week , refuses nictone patch in the hospital DS: Summary Hospital Course Reason for hospitalization: Patient presents emergency department from home for chest pain. Patient states that pain woke him from sleep this morning. He states pain was across the bilateral lower chest described as a pressure. Pain was associated with shortness of breath. States pain is improved at this time. He denies any fevers or chills abdominal pain nausea vomiting or any other symptoms. Patient states he does smoke and has a history of high blood pressure denies any previous cardiac history. Patient states the pain did not radiate. States he took his lisinopril this morning prior to coming into the emergency department Hospital Course: Elevated troponin, symptomatic patient. Pt has been given metoprolol and lovenox History of HTN, history of smoking and positive FH of mother and father had bypass. EKG shows- BORDERLINE ST-T WAVE ABNORMALITY- INF/LAT LEADS. BORDERLINE ECG Continue Metoprolol, ASA ad lovenox Pt to have Heart cath on monday under cardiology cholesterol test trilycerides are slightly up ptaware pt had echo today MR murmur found on examine to day wait full echo report 01/14/20 18:06 With non STEMI was taken to the cardiac cath today is found to have severe coronary artery disease a stent was placed and angioplasty was done, patient is a preserved LV function with a EF 55 %, currently patient states is feeling much better compared to when he arrived, denies any chest pain shortness of breath palpitation fever or chills, today patient seen by director information patient is clinically stable will discharge the patient home today Status at Discharge Functional status at discharge: independent ambulation Overall status at discharge: patient is back to baseline Time Spent with Patient Time attestation: Total time spent providing and/or coordinating discharge services: Patient was seen and examined at the time of the discharge Condition at discharge is stable Code status: Full code. Time spent preparing discharge summary, discharge medications, discussing discharge planning with case management assistant and patient is 35 minutes. Time spent: Greater than 30 minutes Exam Const: General: comfortable and no acute distress HENMT: General nose exam: Normal nares present Mouth: Yes dry mucous membranes Eyes: General: appearance normal, both eyes and all related structures Scle
--- NOTE | 2020-05-07 14:15 | PM.IMHP ---
H&P: HPI History of Present Illness Date/Time: 01/12/2020 Chief complaint: nstemi Narrative: David Canales is a 64 year old male presents with chest pain. Pt was found to have NSTEMI was seen by cardiology. Pt will need heart cath. Pt has chest pressure in bilateral lower chest. Denies SOB, palpitations, GERD symptoms cough or wheezes. Elevated troponin, symptomatic patient. Pt has been given metoprolol and lovenox History of HTN, history of smoking and positive FH of mother and father had bypass. EKG shows- BORDERLINE ST-T WAVE ABNORMALITY- INF/LAT LEADS. BORDERLINE ECG Review of Systems Review of Systems: All systems reviewed & are unremarkable except as noted in HPI and below PMFSH Past Medical History Medical History Hypertension Family History Family History Mother Congestive heart failure Father Congestive heart failure Sibling Congestive heart failure Social History Social History Smoking packs per day: 0.5 Smoking cigarettes per day: 10.0 Years smoked: 30 Smoking pack-years: 15.00 Smoking status: Light tobacco smoker Tobacco type: cigarettes Alcohol intake: current Drinks per week: 6 Substance use: never Gender identity (if verbalized by the patient): Male Spiritual care concerns: No Meds Home Medications and Allergies Home Medications Medication Instructions Recorded Confirmed Type lisinopril 20 mg PO DAILY 01/11/20 01/11/20 History oxycodone-acetaminophen 1 tablet PO TID 01/11/20 01/11/20 History aspirin 81 mg PO QAM #30 tablet 01/15/20 Rx atorvastatin 80 mg PO DAILY #30 tablet 01/15/20 Rx metoprolol succinate 50 mg PO DAILY #30 tablet 01/15/20 Rx nitroglycerin 0.4 mg SUBLINGUAL DIRECTED PRN 01/15/20 Rx #25 tablet ticagrelor [Brilinta] 90 mg PO Q12HR #60 tablet 01/15/20 Rx Allergies Allergy/AdvReac Type Severity Reaction Status Date / Time No Known Allergies Allergy Verified 01/11/20 09:11 Exam Const: General: well developed Nutritional Appearance: well nourished HENMT: Head: normocephalic Eyes: General: appearance normal, both eyes and all related structures Pupils: Equal, round and reactive pupils present Neck: Neck: supple Chest: Chest palpation & inspection: normal inspection of the chest Resp: Effort & Inspection: normal respiratory effort Auscultation: clear to auscultation bilaterally Cardio: Jugular venous distension: no JVD Rhythm: regular rhythm Heart sounds: S1 normal heart sound present and S2 normal heart sound present GI: Inspection: normal to inspection GI Palp: No abdominal tenderness, Yes Soft to palpation and No Tenderness to palpation present (GI) Auscultation: normal bowel sounds : General: Yes no CVA tenderness Back/Spine/Pelvis: Back: no CVA tenderness Skin: General skin exam: normal color and dry skin Neuro: Cranial nerves: Yes CN's II-XII intact bilaterally and Yes Equal, round and reactive pupils present Cognition (Neuro): normal cognition Speech: normal speech Motor exam (neuro): 5/5 motor strength present throughout Extrem: General: normal to inspection Psych: Appearance: grossly normal Mental Status: mental status grossly normal Assessment and Plan Assessment and plan (1) Smoker: Code(s): F17.200 - Nicotine dependence, unspecified, uncomplicated Status: Acute Assessment and Plan: Pt is a smoker 1 pack a week , refuses nictone patch in the hospital (2) Acute non-ST elevation myocardial infarction (NSTEMI): Code(s): I21.4 - Non-ST elevation (NSTEMI) myocardial infarction Status: Acute Assessment and Plan: Continue Metoprolol, ASA ad lovenox Pt to have Heart cath under cardiology cholesterol test trilycerides are slightly up pt is aware pt to have echocardiogram (3) Hypertension
== END 2020-01-15 13:39 | disposition home or self-care (01) | DRG 247 ==
LOC: ANHED 10:19 → ANHIMU 10:26
PROVIDERS: Internal Medicine Cardiovascular Disease; Admitting Provider Family Medicine; Emergency Provider Emergency Medicine; PCP Family Medicine Adolescent Medicine; Visit Provider Family Medicine
PROC: 4A023N7 Measurement of Cardiac Sampling and Pressure, Left Heart, Percutaneous Approach (ICD-10-PCS; CPT 93452; principal; 2020-01-14 09:00)
PROC: 027034Z Dilation of Coronary Artery, One Artery with Drug-eluting Intraluminal Device, Percutaneous Approach (ICD-10-PCS; CPT 92928; 2020-01-14 09:00)
PROC: 027034Z Dilation of Coronary Artery, One Artery with Drug-eluting Intraluminal Device, Percutaneous Approach (ICD-10-PCS; 2020-01-14 09:00)
DX: I21.4 Non-ST elevation (NSTEMI) myocardial infarction (principal); I25.10 Atherosclerotic heart disease of native coronary artery without angina pectoris; I10 Essential (primary) hypertension; F17.210 Nicotine dependence, cigarettes, uncomplicated; Z79.899 Other long term (current) drug therapy
CPT/HCPCS: 36415; 71045; 80053; 80061; 83690; 84484; 85025; 85610; 85730; 93005; 93306; 93458; 96372; 99291; A9270; C1725; C1760; C1769; C1874; C1887; C1894; C9600; G0269; G0378; J0583; J1644; J1650; J2250; J3010; J7030; J7040

== ENCOUNTER 2021-10-21 02:08 | Day surgery (SDC) | payer OTHER, SELFPAY ==
[2021-10-14 13:07] VITALS: BMI 27.1
--- NOTE | 2021-10-21 09:10 | WPDANESEPPF ---
Anes - Initial Pre Proc Eval Procedure: Operation Date: 10/21/21 11:30 Proposed Procedures p Screening Colonoscopy - Migel Macias MD Date/Time: 10/21/21 09:10 Surgeon: Migel Macias MD Pre Op Diagnosis: hx of colon polyps Patient Data Age: 65 Gender: M Height: 1.83 m Weight: 91 kg Allergies Allergy/AdvReac Type Severity Reaction Status Date / Time No Known Allergies Allergy Verified 10/21/21 10:32 Home Medications Medication Instructions Recorded Confirmed Type aspirin 81 mg PO QAM #30 tablet 01/15/20 10/14/21 Rx atorvastatin 80 mg PO DAILY #30 tablet 01/15/20 10/14/21 Rx metoprolol succinate 50 mg PO DAILY #30 tablet 01/15/20 10/14/21 Rx nitroglycerin 0.4 mg SUBLINGUAL DIRECTED PRN 01/15/20 10/14/21 Rx #25 tablet clopidogrel 75 mg tablet 75 mg PO DAILY 09/10/21 10/14/21 History multivitamin 1 tablet PO DAILY 09/13/21 10/14/21 History tadalafil 20 mg tablet 20 mg PO DAILY PRN #6 tablet 09/14/21 10/14/21 Rx hydrochlorothiazide 25 mg tablet 25 mg PO DAILY #30 tablet 09/30/21 10/14/21 Rx oxycodone-acetaminophen 7.5 mg-325 1 tablet PO TID #90 tablet 10/05/21 10/14/21 Rx mg tablet lisinopril 40 mg tablet 40 mg PO DAILY #90 tablet 10/18/21 10/21/21 Rx Patient hx anesthesia problems: none Family hx anesthesia problems: none Results Review: All pre-operative results and documents have been reviewed as part of the pre-operative evaluation. [facility] Past Medical History Medical History (Updated 10/21/21 @ 10:48 by Migel Macias MD) Allergic rhinitis Aortic atherosclerosis lumbar spine 03/2014 CAD (coronary artery disease) Chronic, continuous use of opioids Elevated PSA History of MT (myocardial infarction) 12/2019 History of non-ST elevation myocardial infarction (NSTEMI) Hypertension Osteoarthritis of knees, bilateral Osteoarthritis of right shoulder Personal history of nicotine dependence quit 12/2019 Surgical History Surgical History History of coronary artery stent placement 12/2019 History of surgery on arm left Family History Family History Mother Congestive heart failure Acute myocardial infarction Diabetes mellitus Heart disease Hypertension Father Congestive heart failure Acute myocardial infarction Heart disease Hypertension Sibling Congestive heart failure Acute myocardial infarction Heart disease Hypertension Grandparent Acute myocardial infarction Heart disease Social History Social History Smoking packs per day: 0.5 Smoking cigarettes per day: 10.0 Years smoked: 30 Smoking pack-years: 15.00 Smoking status: Former smoker Tobacco type: cigarettes Alcohol intake: current Drinks per week: 12 Alcohol use details: BEERS Substance use: never Substance use type: does not use Living arrangements: with family Gender identity (if verbalized by the patient): Male Spiritual care concerns: No Anes - Eval Final PreProcedure Day of Procedure 10/21/21 09:10 Patient weight: overweight Heart: regular rate and rhythm Lungs: clear to auscultation and normal air movement Airway: Mallampati scale class II Neurological: alert and oriented Last oral intake: >/= 8 hours ASA classification: III Emergent: no Anesthetic plan: proceed Anesthesia type and monitoring: general GIVS and standard monitoring Results Review: All pre-operative results and documents have been reviewed as part of the pre-operative evaluation. Informed Consent: The patient's anesthetic plan and its attendant risks and benefits were discussed with the patient/family/POA. Questions were solicited and answers provided to the satisfaction of the patient/family/POA.
[2021-10-21 10:32] VITALS: BP 153/88; PULSE 90; RESP 20; TEMP 37.1; O2SAT 99; BMI 26.1
[2021-10-21] MEDS: LACTATED RINGERS 1,000 ML 150 ML IV CONT (10:44)
--- NOTE | 2021-10-21 10:46 | WPDGICN ---
Assessment and Plan Assessment and plan (1) History of colon polyps: Code(s): Z86.010 - Personal history of colonic polyps Status: Acute Assessment and Plan: Patient has a prior history of colon polyps. Plan is for surveillance colonoscopy at this time. Continued follow-up at 5 year intervals is encouraged. GI Consult Note Consult date/time: 10/21/21 10:46 HPI: David Canales is a 65 year old male Presents for screening colonoscopy. Patient has a prior history of colon polyps. Most recently colon polyps were identified 2012. Patient presents today for screening colonoscopy is weight appetite bowel movements are normal. He denies abdominal pain. Family history is noncontributory. Review of Systems Review of Systems: All systems reviewed & are unremarkable except as noted in HPI and below PMFSH Past Medical History Medical History (Updated 10/21/21 @ 10:48 by Migel Macias MD) Allergic rhinitis Aortic atherosclerosis lumbar spine 03/2014 CAD (coronary artery disease) Chronic, continuous use of opioids Elevated PSA History of [place] (myocardial infarction) 12/2019 History of non-ST elevation myocardial infarction (NSTEMI) Hypertension Osteoarthritis of knees, bilateral Osteoarthritis of right shoulder Personal history of nicotine dependence quit 12/2019 Surgical History Surgical History History of coronary artery stent placement 12/2019 History of surgery on arm left Family History Family History Mother Congestive heart failure Acute myocardial infarction Diabetes mellitus Heart disease Hypertension Father Congestive heart failure Acute myocardial infarction Heart disease Hypertension Sibling Congestive heart failure Acute myocardial infarction Heart disease Hypertension Grandparent Acute myocardial infarction Heart disease Social History Social History Smoking packs per day: 0.5 Smoking cigarettes per day: 10.0 Years smoked: 30 Smoking pack-years: 15.00 Smoking status: Former smoker Tobacco type: cigarettes Alcohol intake: current Drinks per week: 12 Alcohol use details: BEERS Substance use: never Substance use type: does not use Living arrangements: with family Gender identity (if verbalized by the patient): Male Spiritual care concerns: No Meds Home Medications and Allergies Home Medications Medication Instructions Recorded Confirmed Type aspirin 81 mg PO QAM #30 tablet 01/15/20 10/14/21 Rx atorvastatin 80 mg PO DAILY #30 tablet 01/15/20 10/14/21 Rx metoprolol succinate 50 mg PO DAILY #30 tablet 01/15/20 10/14/21 Rx nitroglycerin 0.4 mg SUBLINGUAL DIRECTED PRN 01/15/20 10/14/21 Rx #25 tablet clopidogrel 75 mg tablet 75 mg PO DAILY 09/10/21 10/14/21 History multivitamin 1 tablet PO DAILY 09/13/21 10/14/21 History tadalafil 20 mg tablet 20 mg PO DAILY PRN #6 tablet 09/14/21 10/14/21 Rx hydrochlorothiazide 25 mg tablet 25 mg PO DAILY #30 tablet 09/30/21 10/14/21 Rx oxycodone-acetaminophen 7.5 mg-325 1 tablet PO TID #90 tablet 10/05/21 10/14/21 Rx mg tablet lisinopril 40 mg tablet 40 mg PO DAILY #90 tablet 10/18/21 10/21/21 Rx Allergies Allergy/AdvReac Type Severity Reaction Status Date / Time No Known Allergies Allergy Verified 10/21/21 10:32 Vital Signs Vital Signs - 24 hr 10/21/21 10:32 Temperature 98.7 F Pulse Rate 90 Respiratory Rate 20 Blood Pressure 153/88 H Pulse Oximetry 99 Exam Narrative: Physical exam reveals patient to be alert. Vital signs stable. He HEENT exam is unremarkable. Patient is anicteric. Lungs are clear to auscultation and percussion. Her heart is without murmur or extra sounds. Abdominal exam bowel sounds are present soft nontender with no hepatosplenomegaly. Digital external r
[2021-10-21 12:08] VITALS: BP 112/73; PULSE 74; RESP 18; O2SAT 96
[2021-10-21 12:18] VITALS: BP 123/66; PULSE 66; RESP 20; O2SAT 100
[2021-10-21 12:28] VITALS: BP 134/85; PULSE 60; RESP 20; O2SAT 100
== END 2021-10-21 12:37 | disposition home or self-care (01) ==
PROVIDERS: PCP Family Medicine Adolescent Medicine; Visit Provider Internal Medicine Gastroenterology
PROC: 0DJD8ZZ Inspection of Lower Intestinal Tract, Via Natural or Artificial Opening Endoscopic (ICD-10-PCS; CPT 45378; principal; 2021-10-21 11:30)
DX: Z12.11 Encounter for screening for malignant neoplasm of colon (principal); D12.3 Benign neoplasm of transverse colon; K64.8 Other hemorrhoids; I25.10 Atherosclerotic heart disease of native coronary artery without angina pectoris; I10 Essential (primary) hypertension; Z95.5 Presence of coronary angioplasty implant and graft; Z87.891 Personal history of nicotine dependence; Z79.82 Long term (current) use of aspirin; I25.2 Old myocardial infarction
CPT/HCPCS: 45385; 88305; J2704; J7120

== ENCOUNTER 2022-12-28 10:25 | Outpatient (CLI) | payer OTHER, SELFPAY ==
[2022-12-28 11:09] LABS: Anion Gap 5 mmol/L (8-16); Blood Urea Nitrogen 17 mg/dL (9-20); Calcium 9.8 mg/dL (8.4-10.2); Carbon Dioxide 30 mmol/L (22-30); Chloride 104 mmol/L (98-107); Estimated Glomerular Filt Rate > 60; Glucose 89 mg/dL (65-110); Potassium 5.1 mmol/L (3.4-5.0); Sodium 139 mmol/L (137-145)
== END 2022-12-28 10:26 | disposition home or self-care (01) ==
LOC: ANHSURGERY 10:30
PROVIDERS: Anesthesiology; PCP Family Medicine Adolescent Medicine; Visit Provider Urology
DX: R97.20 Elevated prostate specific antigen [PSA] (principal); Z79.899 Other long term (current) drug therapy; Z01.818 Encounter for other preprocedural examination
CPT/HCPCS: 36415; 80048; 87086

== ENCOUNTER 2023-01-03 01:52 | Day surgery (SDC) | payer OTHER, SELFPAY ==
[2022-12-22 11:39] VITALS: BMI 27.1
--- NOTE | 2022-12-22 11:59 | PC.NURSE ---
PRE-OP INSTRUCTIONS, PLEASE READ CAREFULLY Report to the Outpatient Waiting Room, entrance under the green pavilion located off [facility], at time _0830_ on date _01/03/23_. Planned Procedure Time: _1030_. Time changes happen often and if your time is changed the preop area will call you the afternoon before. - You and your visitor will be asked to self-screen and do not enter if you have any COVID symptoms. - A mask is optional within the hospital at this time. Patients may have clear liquids (water, carbonated beverages, clear teas, apple juice) until 3 hours prior to surgery (0730 AM) with a maximum of 20 ounces. - No food from midnight until time of surgery Take the following medications with a SIP of water the morning of surgery: _METOPROLOL, PAIN PILL/NITROGLYCERIN IF NEEDED_ DO NOT STOP ANY OF YOUR OTHER PRESCRIPTION MEDICATIONS PRIOR TO SURGERY ?EXCEPT THE FOLLOWING Medications to discontinue per DR. JOSEPH/DR. NARAYANAN - _CLOPIDOGREL DATE TO TAKE LAST DOSE 12/28/22, ASPIRIN DATE TO TAKE LAST DOSE 12/26/22 Medications to discontinue per ANESTHESIA - _MULTIVITAMIN 3 DAYS PRIOR TO SRUGERY DATE TO TAKE LAST DOSE 12/30/22_ Please no make-up, nail lebanese, hairspray, perfume, deodorant, or body powder the day of surgery. No jewelry (including any body piercings) or valuables the day of surgery, leave them at home. Please take a shower or bath the night before, or the morning of, surgery with an antibacterial soap. Wear comfortable, loose fitting clothing. - Jewelry must be removed prior to entering the operating room. Rings and piercings that are not removed may be cut off. - The hospital will not accept responsibility for valuables. - Please leave all valuables, including medications, at home the day of surgery. If you are going home after surgery, a licensed cdl team truck driver must drive you home. - NO public transportation without another adult if you receive anesthesia. - We recommend that an adult stay with you for 24 hours following discharge. - We also recommend that you do not drive, make important decision, drink alcoholic beverages, or take any drugs that were not prescribed by your health care provider for at least 24 hours after your discharge time. Follow any additional instructions given to you from your surgeon. If you or anyone in your household have experienced Covid symptoms in the past week, please notify your surgeon or the nurse liaison at the phone number below for possible testing. Telephone instructions given to _PATIENT_and asked if any additional questions and then verbalized understanding. Patient advised to call surgeon office or pre surgery nurse liaison [phone] if any additional questions.
--- NOTE | 2023-01-02 09:32 | WPDANESEPPF ---
Anes - Initial Pre Proc Eval Procedure: Operation Date: 01/03/23 09:45 Proposed Procedures p Trans Rectal Ultrasound Fusion Guided Prostate Biopsy - Hector Vega MD Date/Time: 01/02/23 09:32 Surgeon: Hector Vega MD Pre Op Diagnosis: elevated psa Patient Data Age: 67 Gender: M Height: 1.83 m Weight: 90.9 kg Allergies Allergy/AdvReac Type Severity Reaction Status Date / Time No Known Allergies Allergy Verified 01/03/23 08:23 Home Medications Medication Instructions Recorded Confirmed Type aspirin 81 mg tablet,delayed 81 mg PO QAM #30 tabs 01/15/20 12/22/22 Rx release atorvastatin 80 mg tablet 80 mg PO DAILY #30 tabs 01/15/20 12/22/22 Rx metoprolol succinate 50 mg 50 mg PO DAILY #30 tabs 01/15/20 12/22/22 Rx tablet,extended release 24 hr nitroglycerin 0.4 mg sublingual 0.4 mg sublingual DIRECTED PRN 01/15/20 12/22/22 Rx tablet chest pain #25 tabs clopidogrel 75 mg tablet 75 mg PO DAILY 09/10/21 12/22/22 History multivitamin 1 tablet PO DAILY 09/13/21 12/22/22 History lisinopril 40 mg tablet See Rx Instructions .Route 10/04/22 12/22/22 Rx .COMPLEX #90 tabs hydrochlorothiazide 25 mg tablet 25 mg PO DAILY #90 tabs 10/10/22 12/22/22 Rx oxycodone-acetaminophen 7.5 mg-325 1 tablet PO TID #90 tabs 12/20/22 12/22/22 Rx mg tablet tadalafil 20 mg tablet 20 mg PO DAILY PRN Erectile 12/22/22 12/22/22 History Dysfunction Patient hx anesthesia problems: none Family hx anesthesia problems: none Results Review: All pre-operative results and documents have been reviewed as part of the pre-operative evaluation. [facility] Past Medical History Medical History (Updated 09/28/22 @ 12:59 by Patricia Mattson, PA-C) Allergic rhinitis Aortic atherosclerosis lumbar spine 03/2014 CAD (coronary artery disease) Chronic, continuous use of opioids Elevated PSA History of [place] (myocardial infarction) 12/2019 History of non-ST elevation myocardial infarction (NSTEMI) Hypertension Osteoarthritis of knees, bilateral Osteoarthritis of right shoulder Personal history of nicotine dependence quit 12/2019 Surgical History Surgical History History of coronary artery stent placement 12/2019 History of surgery on arm left Family History Family History Mother Congestive heart failure Acute myocardial infarction Diabetes mellitus Heart disease Hypertension Father Congestive heart failure Acute myocardial infarction Heart disease Hypertension Sibling Congestive heart failure Acute myocardial infarction Heart disease Hypertension Grandparent Acute myocardial infarction Heart disease Social History Social History Smoking packs per day: 0.5 Smoking cigarettes per day: 10.0 Years smoked: 30 Smoking pack-years: 15.00 Smoking status: Former smoker Tobacco type: cigarettes Second hand tobacco smoke exposure: Yes Smoking end date: 01/14/20 Additional smoking assessment comments: STATES OCCASIONALLY SMOKED 1-2 CIGARETTS/MONTH Alcohol intake: current Drinks per week: 12 Alcohol use details: 12-20 BEERS/WEEK Substance use: never Substance use type: does not use Living arrangements: with family Gender identity (if verbalized by the patient): Male Spiritual care concerns: No Anes - Eval Final PreProcedure Day of Procedure 01/02/23 09:32 Patient weight: overweight Heart: regular rate and rhythm Lungs: clear to auscultation Airway: Mallampati scale class III Neurological: alert and oriented Last oral intake: >/= 8 hours ASA classification: III Emergent: no Anesthetic plan: proceed Anesthesia type and monitoring: general GIVS and standard monitoring Results Review: All pre-operative results and documents have been reviewed as part of the pre-operative e
[2023-01-03] VITALS (8 sets, daily range): BP systolic 104–137; BP diastolic 67–86; PULSE 53–63; RESP 14–18; TEMP 36.1–37.2; O2SAT 95–100
--- NOTE | 2023-01-03 07:30 | WPDHPUPDATE1 ---
History and Physical Update Update Date/Time: 01/03/23 07:30 History and Physical has been reviewed, including an updated exam of the patient. There are NO changes in the patient's condition. Risks, benefits, and alternatives have been discussed and questions answered. Patient agrees to proceed with procedure. Proceed with Uronav US and prostate biopsy
[2023-01-03] MEDS: LACTATED RINGERS 1,000 ML 30 ML IV CONT (08:22)
[2023-01-03] MEDS: ceFAZolin 2 GM/D5W 50 ML 2 GM/50 ML BAG IVPB (10:09)
--- NOTE | 2023-01-03 10:38 | P.OP_ITS ---
Procedure Note - Detailed Date of Procedure 01/03/23 Pre-op Diagnosis elevated psa Post-op Diagnosis Same Procedure Performed uronav us and prostate biopsy Surgeon Hector Vega MD Anesthesia General Description of Procedure Patient is taken to the operative suite correctly identified. Once anesthesia w as obtained was placed in decubitus position. Transrectal ultrasound probe was then inserted. The MRI image was fused to the ultrasound machine. He had 2 regions of into this. We took 3 cores from each of these. I then took 12 cores in the standard fashion. Patient tolerated procedure well without complications and was taken recovery stable condition. He is to call for path results in 1 week. This completes dictation please send a copy of this op note to my office Drains No Packing No Pathology Yes Complications No immediate complications Condition Stable Disposition PACU
[2023-01-03] MEDS: oxyCODONE HCL (*CRX) 5 MG TAB IR PO (11:42)
== END 2023-01-03 12:15 | disposition home or self-care (01) ==
PROVIDERS: PCP Family Medicine Adolescent Medicine; Visit Provider Urology
PROC: (CPT 55700; principal; 2023-01-03 09:45)
DX: C61 Malignant neoplasm of prostate (principal)
CPT/HCPCS: 55700; 76872; 77021; 36415; 80048; 87086; 88342; A9270; G0416; J0690; J2250; J2405; J2704; J3010; J7120

== ENCOUNTER → 2023-10-16 13:18 | Outpatient (CLI) | payer OTHER, SELFPAY ==
--- NOTE | ~2023-10-16 | XR_ITS ---
EXAMINATION: XR shoulder RT min 2V INDICATION: Right shoulder pain TECHNIQUE: Four views of the right shoulder are obtained on five radiographs. COMPARISON: None FINDINGS: Normal alignment. No fracture. There is advanced osteoarthritis of the glenohumeral joint. There is moderate osteoarthritis of the acromioclavicular joint. Soft tissues are unremarkable. IMPRESSION: 1. Advanced osteoarthritis of the glenohumeral joint. Reviewed, dictated and finalized at location B. AIGN DEVELOPER
== END ==
PROVIDERS: PCP Family Medicine Adolescent Medicine; Visit Provider Family Medicine Adolescent Medicine
DX: M19.011 Primary osteoarthritis, right shoulder (principal)
CPT/HCPCS: 73030

== ENCOUNTER 2024-12-26 11:42 | Outpatient (CLI) | payer OTHER, SELFPAY ==
--- OUTSIDE RECORDS SUMMARY | 2024-12-26 11:45 | XMS_ITS | Clinical Summary ---
Author Organization [facility] [address] Address [address] [place] [address] Care Team Providers Care Medical Insurance Verifier Name Role Phone Espinoza Meyer MD Primary Care Prov ider Kathi Wren NP Unavailable Juanjo Fuentes MD Unavailable [phone] Allergies No known active allergies Medications lisinopriL (PRINIVIL,ZESTR [place]) 40 mg tablet Take 1 tablet (40 mg total) by mouth every morning 12/23/2019 Active nitroglycerin (NITROSTAT) 0.[address] 1 tablet (0.4 mg total) under the tongue daily as needed for chest pain 01/15/2020 Active hydroCHLOROthia zide (HYDRODIURIL) 25 mg tablet Take 1 tablet (25 mg total) by mouth every morning 10/24/2021 Active calcium carbonate (TUMS ORAL) Take 2 tablet/chew tab by mouth as needed Active cyclobenzaprine (FLEXERIL) 10 mg tabletIndicatio ns:Muscle Spasm Take 1 tablet (10 mg total) by mouth 3 (three) times a day as needed for muscle spasms for up to 14 days 42 tablet 08/09/2024 Active acetaminophen 500 mg capsuleIndicati ons:Pain Take 2 capsules (1,000 mg total) by mouth every 6 (six) hours 90 tablet 08/09/2024 Active aspirin 81 mg enteric coated tabletIndicatio ns:Deep Vein Thrombosis Prevention Take 1 tablet (81 mg total) by mouth 2 (two) times a day for 14 days 28 tablet 08/09/2024 Active docusate sodium (COLACE) 100 mg capsuleIndicati ons:constipatio n Take 1 capsule (100 mg total) by mouth 2 (two) times a day 60 capsule 08/09/2024 Active oxyCODONE-aceta minophen (PERCOCET) 7.5-325 mg per tablet Take 1 tablet by mouth 3 (three) times a day 08/30/2024 Active atorvastatin (LIPITOR) 80 mg tabletIndicatio ns:coronary artery disease,hyperli pidemia Take 0.5 tablets (40 mg total) by mouth every morning 45 tablet 1 09/19/2024 Active Active Problems Problem Noted Date Diagnosed Date Right shoulder pain 08/08/2024 Osteoarthritis of right glenohumeral joint 05/30 Encounter for follow-up surveillance of prostate cancer 05/17/2023 Prostate cancer 03/15/2023 Cancer Staging:Clinical stage from 01/03/2023:Stage IIB(cT1c, cN0, cM0, PSA: 7.2, Grade Group: 2) - Signed by Samm Pool MD on 04/12/2023 History of coronary artery stent placement 12/30 Coronary atherosclerosis of [place] coronary evon ry 11/12/2020 Encounters Date Type Department Care Team Description 12/13/2024 9:40 AM CDT Office Visit [facility] Radiation Oncology at [facility] [address] [place] [address] Kathi Wren NP Prostate cancer (HCC) (Primary Dx); Encounter for follow-up surveillance of prostate cancer 12/04/2024 11:45 AM CDT Office Visit [facility] Orthopaedic Surgery [address] [place] [address] Advanced Medicine [address]th [place] [address] [place] [address] Silvio Le MD Status post reverse arthroplasty of right shoulder 12/04/2024 11:25 AM CDT - 12/04/2024 11:59 PM CDT Hospital Encounter [facility] [address] [place] [id number] Status post reverse arthroplasty of right shoulder Discharge Disposition: Discharge to home or self care 10/23/2024 2:30 PM STUDENT COUNSELLOR Office Visit [facility] Orthopaedic Surgery [address] [facility] Advanced Medicine [address]th [place] [address] [place] [address] Silvio Le MD Status post reverse arthroplasty of right shoulder 10/23/2024 2:11 PM STUDENT COUNSELLOR - 10/23/2024 11:59 PM STUDENT COUNSELLOR Hospital Encounter [facility] [address] [place] [address] Silvio Le MD Status post reverse arthroplasty of right shoulder Discharge Disposition: Discharge to home or self care 10/02/2024 10:00 AM STUDENT COUNSELLOR Office Visit [facility] Cardiology [address] [place] [address] Mahnaz Doherty NP Lipid screening (Primary Dx); Presence of coronary angioplasty implant and graft; Atherosclerosis of [place] coronary artery of [place] heart without angina pectoris from Last 3 Months Surgical History Surgery Date Site/Laterality Comments CARDIAC STENT PLACEMENT 01/14/[address] CARDIAC CATHETERIZATION 12/20/2019 - 01/19/2020 ARM SURGERY 08/21/1973 - 08/20/1974 Left plates and screws NERVE SURGERY 08/21/2017 - 08/20/2018 Ulner nerve COLONOSCOPY 10/19/2021 - 11/18/2021 ANGIOPLASTY Medical History Medical History Date Comments Hyperlipidemia Hypertension Coronary artery disease Heart disease 01/11/2020 Family History Medical History Relation Name Comments Heart disease Brother 1 H Cancer Brother 2 Cancer Brother 3 R Heart disease Brother 4 Alex Heart attack Father Fleming Heart disease Father Lonnie Tuberculosis Maternal Grandfather Sudden Cardiac Maternal Grandmother Heart disease Mother Fidel Cancer Paternal Grandmother Fern Anesthesia problems Neg Hx Relation Name Status Comments Brother 1 H Alive Brother 2 Brother 3 R Brother 4 Alex Father Lonnie Maternal Grandfather Maternal Grandmother Mother Fidel Paternal Grandmother Fern Social History Tobacco Use Types Packs/Day Years Used Date Smoking Tobacco: Former Cigarettes 0.3 5.3 2 020 - 1971 Smokeless Tobacco: Never Tobacco Cessation:Counseling Given: Not Answered Comments:Seldom social smoker over the past couple years - none at all over the past 4 months Alcohol Use Standard Drinks/Week Comments Yes 20 (1 standard drink = 0.6 oz pu re alcohol) AUDIT-C Answer Date Recorded Q1: How often do you have a drink containing alc ohol? 2-3 times a week 07/25/2024 Q2: How many drinks containi ng alcohol do you have on a typical day when you are drinking? 5 or 6 07/25/2024 Q3: How often do you have si x or more drinks on one occasion? Weekly 07/25/2024 Personal Safety Answer Date Recorded Have you ever been in or are you currently in a harmful physical or emotional relationship or is someone making you feel afraid or unsafe? Denies 08/08/2024 Sex and Gender Information Value Date Recorded Sex Assigned at Not on file Legal Sex Male 6:36 PM STUDENT COUNSELLOR Gender Identity Male 01/23/2020 7:54 AM CDT Sexual Orientation Straight 01/23/2020 7: 54 AM CDT Obstetrics History Last Filed Vital Signs Vital Sign Reading Time Taken Comments Blood Pressure 128/70 10/02/2024 10:02 AM STUDENT COUNSELLOR Pulse 76 10/02/2024 10:02 AM STUDENT COUNSELLOR Temperature 36.9 C (98.4 F) 08/09/2024 8:34 AM STUDENT COUNSELLOR Respiratory Rate 16 08/09/2024 8:34 AM STUDENT COUNSELLOR Oxygen Saturation 97% 10/02/2024 10:02 AM STUDENT COUNSELLOR Inhaled Oxygen Concentration - - Weight 92.1 kg (203 lb 1.6 oz) 12/13/2024 9:50 A M CDT Height 182.9 cm (6') 10/02/2024 10:02 AM STUDENT COUNSELLOR Body Mass Index 27.55 10/02/2024 10:02 AM STUDENT COUNSELLOR Plan of Treatment Health Maintenance Due Date Last Done Comments Colon Cancer Screening-Colonoscopy 1955 Depression Screening 1955 Hepatitis C Screening 1955 DTaP/Tdap/Td Vaccine (1 - Tdap) 1964 Hepatitis B Screening 11/10/1971 Pneumococcal vaccine 65+ (1 of 1 - PCV) 11/10/2003 Zoster Vaccine (1 of 2) 11/10/2003 Abdominal Aortic Aneurysm (A AA) Screen 2018 Well Visit 65+ 2018 Influenza Vaccine (Season Ended) 2025 Fall Risk Assessment 08/09/2025 08/09/2024, 03/03/20 Prostate Cancer Screening-PSA Discontinued , 09/09/2024, 05/31/2024, Additional history exists Medical Devices Implanted Type Area Software Testing Specialist Device Identifier Shelf Expiration Date Model / Serial / Lot Stent Stent Heart Description:X1 [employer] Tornier Aequalis Perform Od42 Mm Reverse Shoulder Standard Sphere Glenoid [id number] - [id number] - [id number] Implanted:Qty: 1 on 08/08/2024 by Silvio Le MD at [facility] Right: Shoulder [employer] 08/09/2028 [id number] / [id number] / [employer] Insert Perform 10 Deg Ret [id number] - [id number] - [id number] Implanted:Qty: 1 on 08/08/2024 by Silvio Le MD at [facility] Right: Shoulder [employer] 01/02/2029 [id number] / [id number] / [employer] Tray Stem Humeral Shoulder Reverse Long Tornier Perform [id number] - [id number] - [id number] Implanted:Qty: 1 on 08/08/2024 by Silvio Le MD at [facility] Right: Shoulder [employer] 05/27/2029 [id number] / [id number] / [employer] Screw Glenoid Locking Reverse Aequalis Perform 5.0x26mm Titanium [id number] - [id number] Implanted:Qty: 2 on 08/08/2024 by Silvio Le MD at [facility] Right: Shoulder [employer] [id number] / / [employer] Aequalis Perform Reversed 5mm 18mm Peripheral Glenoid Screw [id number] - [id number] Implanted:Qty: 1 on 08/08/2024 by Silvio Le MD at [facility] Right: Shoulder [employer] [id number] / / [employer] Aequalis Perform Reversed 5mm 30mm Peripheral Glenoid Screw [id number] - [id number] Implanted:Qty: 1 on 08/08/2024 by Silvio Le MD at [facility] Right: Shoulder [employer] [id number] / / [employer] Sphere Glenoid Centered Post Tornier Perform [id number] - [id number] Implanted:Qty: 1 on 08/08/2024 by Silvio Le MD at [facility] Right: Shoulder [employer] 01/05/2025 [id number] / / [id number] Procedures Procedure Name Priority Date/Time Associated Diagnosis Comments PSA, TOTAL AND FREE Routine 12/06/2024 10:27 AM CDT Prostate cancer (HCC) XR SHOULDER RIGHT 2 OR MORE VIEWS Schedule Routine, Read Routine (OP Routine) 12/04/2024 11:37 AM CDT Status post reverse arthroplasty of right shoulder XR SHOULDER RIGHT 2 OR MORE VIEWS Schedule Routine, Read Routine (OP Routine) 10/23/2024 2:17 PM STUDENT COUNSELLOR Status post reverse arthroplasty of right shoulder POCT LIPID PANEL Routine 10/02/2024 10:0 7 AM STUDENT COUNSELLOR Lipid screening from Last 3 Months Results * (ABNORMAL) PSA, total and free (12/06/2024 10:27 AM CDT) PSA 2.3 < OR = 4.0 ng/mL [facility] PSA, free 0.2 ng/mL [facility] PSA, free 9(L) >25 % (calc) [facility] Comment: PSA(ng/mL) Free PSA(%) Estimated(x) Probability of Cancer(as%) 0-2.5 (*) Approx. 1 2.6-4.0(1) 0-27(2) 24(3) 4.1-10(4) 0-10 56 11-15 28 16-20 20 21-25 16 >or =26 8 >10(+) N/A >50 References:(1)Liam et al.:Urology 60: 469-474 (2002) (2)Liam et al.:J.Urol 168: 922-925 (2002) Free PSA(%) Sensitivity(%) Specificity(%) < or = 25 85 19 < or = 30 93 9 (3)Liam et al.:TERESITA 277: 2256-3563 (1996) (4)Catalona et al.:TERESITA 279: 2606-5095 (1997) (x)These estimates vary with age, ethnicity, family history and NANDO results. (*)The diagnostic usefulness of % Free PSA has not been established in patients with total PSA below 2.6 ng/mL (+)In men with PSA above 10 ng/mL, prostate cancer risk is determined by total PSA alone. The Total PSA value from this assay system is standardized against the equimolar PSA standard. The test result will be approximately 20% higher when compared to the WHO-standardized Total PSA (Siemens assay). Comparison of serial PSA results should be interpreted with this fact in mind. PSA was performed using the Lester Kristopher Immunoassay method. Values obtained from different assay methods cannot be used interchangeably. PSA levels, regardless of value, should not be interpreted as absolute evidence of the presence or absence of disease. Blood 12/06/2024 10:2 7 AM CDT 12/06/2024 10:28 AM CDT Kathi Wren LAB BLOOD ORDERABLES F inal Result Performing Organization Address City/State/[facility] Co de Phone Number [facility] [address] [place] [address] * XR Shoulder Right 2+ View (12/04/2024 11:37 AM CDT) Anatomical Region Laterality Modality Upper Extremities, Shoulder Right Comp uted Radiography 12/04/2024 12:3 1 PM CDT Impressions 12/04/2024 12:31 PM CDT Reverse jsra-rss-epxbaw right total shoulder arthroplasty in near-anatomic position. Electronically signed by: Levy Gilbert M.D. Narrative 12/04/2024 12:31 PM CDT EXAMINATION: XR SHOULDER RIGHT 2 OR MORE VIEWS HISTORY: Right shoulder osteoarthritis FINDINGS: 4 views of the right shoulder were performed with comparison made to 10/23/2024. There is a reverse hnhu-imv-pymhpk right total shoulder arthroplasty in near-anatomic position. There is no periprosthetic lucency or fracture. There is mild acromioclavicular osteoarthritis. Procedure Note Levy Gilbert MD PhD - 12/04/2024 EXAMINATION: XR SHOULDER RIGHT 2 OR MORE VIEWS HISTORY: Right shoulder osteoarthritis FINDINGS: 4 views of the right shoulder were performed with comparison made to 10/23/2024. There is a reverse vmrx-bde-hdmasg right total shoulder arthroplasty in near-anatomic position. There is no periprosthetic lucency or fracture. There is mild acromioclavicular osteoarthritis. IMPRESSION: Reverse hhea-jtc-ohbivs right total shoulder arthroplasty in near-anatomic position. Electronically signed by: Levy Gilbert M.D. Silvio Le MD IMG XR PROCEDURES Final Re sult * XR Shoulder Right 2+ View (10/23/2024 2:17 PM STUDENT COUNSELLOR) Anatomical Region Laterality Modality Upper Extremities, Shoulder Right Comp uted Radiography 10/23/2024 2:32 PM STUDENT COUNSELLOR Impressions 10/23/2024 2:32 PM STUDENT COUNSELLOR Unchanged reverse total right glenohumeral arthroplasty in expected position. Electronically signed by: Zeke Gauthier M.D. Narrative 10/23/2024 2:32 PM STUDENT COUNSELLOR XR SHOULDER RIGHT 2 OR MORE VIEWS HISTORY: Shoulder arthroplasty. FINDINGS: 4 views of the right shoulder are obtained and compared with 08/23/2024. There is redemonstrated reverse total right glenohumeral arthroplasty. Orthopedic components are in expected position. There is no periprosthetic fracture or osteolysis. Alignment and soft tissues are normal. Procedure Note Zeke Gauthier MD - 10/23/2024 XR SHOULDER RIGHT 2 OR MORE VIEWS HISTORY: Shoulder arthroplasty. FINDINGS: 4 views of the right shoulder are obtained and compared with 08/23/2024. There is redemonstrated reverse total right glenohumeral arthroplasty. Orthopedic components are in expected position. There is no periprosthetic fracture or osteolysis. Alignment and soft tissues are normal. IMPRESSION: Unchanged reverse total right glenohumeral arthroplasty in expected position. Electronically signed by: Zeke Gauthier M.D. Silvio Le MD IMG XR PROCEDURES Final Re sult * POCT lipid panel (10/02/2024 10:07 AM STUDENT COUNSELLOR) Cholesterol, POC 122 mg/dL HDL, POC 45 mg/dL Triglycerides, POC 137 mg/dL LDL Cholesterol POC 50 mg/dL Chol/HDL Ratio, POC 1.1 Non-HDL Cholesterol, POC 78 mg/dL Cholesterol Total, POC 122 mg/dL Capillary blood 10/02/2024 1 0:07 AM STUDENT COUNSELLOR Mahnaz Doherty NP POINT OF CARE TEST ORDERABLE S Final Result from Last 3 Months Insurance [facility] * Guarantor: David Canales Account Type Relation to Patient Date of Phone Billing Address Personal/Family Self 1955 [address] [place] [address] [facility] Advance Directives For more information, please contact: [phone] * Full Code (Latest Code Status on File) Date Activated Date Inactivated Comments 08/08/2024 7:28 PM 08/09/2024 4:48 PM * Full Code Date Activated Date Inactivated Comments 05/08/2023 5:48 PM 05/09/2023 11:43 PM Care Teams Medical Insurance Verifier Relationship Specialty Start Date End Date Espinoza Meyer MD [address] [place] [address] PCP - General Family Medicine 01/11/20 Kathi Wren NP [id number] [place] [address] Nurse Practitioner Nurse Practitioner 05/17/23 Juanjo Fuentes MD [id number] [place] [address] Radiation Oncologist Radiation Oncology 05/17/23
--- OUTSIDE RECORDS SUMMARY | 2024-12-26 11:45 | XMS_ITS | Referral Summary ---
Author Organization [facility] [address] Address [address] [place] [address] Care Team Providers Care Professor Of Communication Name Role Phone Espinoza Meyer MD Primary Care Prov ider Kathi Wren NP Unavailable Juanjo Fuentes MD Unavailable [phone] Encounters Date Type Department Care Team Description 12/13/2024 9:40 AM CDT Office Visit [facility] Radiation Oncology at [facility] [address] [place] [address] Kathi Wren NP Prostate cancer (HCC) (Primary Dx); Encounter for follow-up surveillance of prostate cancer 12/04/2024 11:25 AM CDT - 12/04/2024 11:59 PM CDT Hospital Encounter [facility] [address] [place] [id number] Status post reverse arthroplasty of right shoulder Discharge Disposition: Discharge to home or self care 12/04/2024 11:45 AM CDT Office Visit [facility] Orthopaedic Surgery [address] [place] [address] for Advanced Medicine 12th [place] [address] [place] [address] Silvio Le MD Status post reverse arthroplasty of right shoulder 10/23/2024 2:11 PM THERMODYNAMICS PROFESSOR - 10/23/2024 11:59 PM THERMODYNAMICS PROFESSOR Hospital Encounter [facility] [address] [place] [address] Silvio Le MD Status post reverse arthroplasty of right shoulder Discharge Disposition: Discharge to home or self care 10/23/2024 2:30 PM THERMODYNAMICS PROFESSOR Office Visit [facility] Orthopaedic Surgery [address] [facility] Advanced Medicine 12th [place] [address] [place] [address] Silvio Le MD Status post reverse arthroplasty of right shoulder 10/02/2024 10:00 AM THERMODYNAMICS PROFESSOR Office Visit [facility] [address] [place] [id number] Mahnaz Doherty NP Lipid screening (Primary Dx); Presence of coronary angioplasty implant and graft; Atherosclerosis of [place]etm[place] coronary artery of [place] heart without angina pectoris from Last 3 Months Allergies No known active allergies Medications lisinopriL [...] artery stent placement 12/30 Coronary atherosclerosis of [place]etm[place] coronary evon ry 11/12/2020 Social History Tobacco Use Types Packs/Day Years [...] on file Legal Sex Male 6:36 PM THERMODYNAMICS PROFESSOR Gender Identity Male 01/23/2020 7:54 AM CDT Sexual Orientation Straight 01/23/2020 7: 54 AM CDT Last Filed Vital Signs Vital Sign Reading Time Taken Comments Blood Pressure 128/70 10/02/2024 10:02 AM THERMODYNAMICS PROFESSOR Pulse 76 10/02/2024 10:02 AM THERMODYNAMICS PROFESSOR Temperature 36.9 C (98.4 F) 08/09/2024 8:34 AM THERMODYNAMICS PROFESSOR Respiratory Rate 16 08/09/2024 8:34 AM THERMODYNAMICS PROFESSOR Oxygen Saturation 97% 10/02/2024 10:02 AM THERMODYNAMICS PROFESSOR Inhaled Oxygen Concentration - - Weight 92.1 kg (203 lb 1.6 oz) 12/13/2024 9:50 A M CDT Height 182.9 cm (6') 10/02/2024 10:02 AM THERMODYNAMICS PROFESSOR Body Mass Index 27.55 10/02/2024 10:02 AM THERMODYNAMICS PROFESSOR Plan of Treatment Not on file Medical Devices Implanted Type Area Health Sciences Manager Device Identifier Shelf Expiration Date Model / Serial / Lot Stent Stent Heart Description:X1 .[employer] Tornier Aequalis Perform Od42 Mm Reverse Shoulder Standard Sphere Glenoid [id number] - [id number] - [id number] Implanted:Qty: 1 on 08/08/2024 by Silvio Le MD at [facility] Right: Shoulder [employer] 08/09/2028 [id number] / [id number] / [employer] Insert Perform 10 Deg Ret Fud1996 [id number] - [id number] - [id number] Implanted:Qty: 1 on 08/08/2024 by Silvio Le MD at [facility] Right: Shoulder [employer] 01/02/2029 [id number] / [id number] / [employer] Tray Stem Humeral Shoulder Reverse Long Tornier Perform [id number] - [id number] - [id number] Implanted:Qty: 1 on 08/08/2024 by Silvio Le MD at [facility] Right: Shoulder [employer] 05/27/2029 [id number] / [id number] / [employer] Screw Glenoid Locking Reverse Aequalis Perform 5.0x26mm Titanium [id number] - [id number] Implanted:Qty: 2 on 08/08/2024 by Silvio Le MD at [facility] Right: Shoulder [employer] [id number] / / [employer] Aequalis Perform Reversed 5mm 18mm Peripheral Glenoid Screw [id number] - [id number] Implanted:Qty: 1 on 08/08/2024 by Silvio Le MD at [facility] Right: Shoulder [employer] [id number] / / [employer] Aequalis Perform Reversed 5mm 30mm Peripheral Glenoid Screw Fov067 - [id number] Implanted:Qty: 1 on 08/08/2024 by Silvio Le MD at [facility] Right: Shoulder [employer] [id number] / / [employer] Sphere Glenoid Centered Post Tornier Perform [id number] - [id number] Implanted:Qty: 1 on 08/08/2024 by Silvio Le MD at [facility] Right: Shoulder [employer] 01/05/2025 [id number] / / [id number] Procedures Procedure Name Priority Date/Time Associated Diagnosis Comments PSA, TOTAL AND FREE Routine 12/06/2024 10:27 AM CDT Prostate cancer (HCC) XR SHOULDER RIGHT 2 OR MORE VIEWS Schedule Routine, Read Routine (OP Routine) 12/04/2024 11:37 AM CDT Status post reverse arthroplasty of right shoulder XR SHOULDER RIGHT 2 OR MORE VIEWS Schedule Routine, Read Routine (OP Routine) 10/23/2024 2:17 PM THERMODYNAMICS PROFESSOR Status post reverse arthroplasty of right shoulder POCT LIPID PANEL Routine 10/02/2024 10:0 7 AM THERMODYNAMICS PROFESSOR Lipid screening from Last 3 Months Results [...] N/A >50 References:(1)Liam et al.:Urology 60: 469-474 (2001) (2)Liam et al.:J.Urol 168: 922-925 (2001) Free PSA(%) Sensitivity(%) Specificity(%) < or = 25 85 19 < or = 30 93 9 (3)Yessiona et al.:ETRESITA 277: 2669-2976 (1996) (4)Catalona et al.:TERESITA 279: 9581-1205 (1997) (x)These estimates vary with age, ethnicity, [...] mind. PSA was performed using the Lester Eldridge Immunoassay method. Values obtained from different assay methods cannot be used interchangeably. PSA levels, regardless of value, should not be interpreted as absolute evidence of the presence or absence of disease. Blood 12/06/2024 10:2 7 AM CDT 12/06/2024 10:28 AM CDT Kathi Wren NP LAB BLOOD ORDERABLES F inal Result [facility] [address] [place] [address] * XR Shoulder Right 2+ View (12/04/2024 11:37 AM CDT) Anatomical Region Laterality Modality Upper Extremities, Shoulder Right Comp uted Radiography 12/04/2024 12:3 1 PM CDT Impressions 12/04/2024 12:31 PM CDT Reverse woxj-vpf-tyvnpa right total shoulder arthroplasty in near-anatomic position. Electronically signed by: Levy Gilbert M.D. Narrative 12/04/2024 12:31 PM CDT EXAMINATION: XR SHOULDER RIGHT 2 OR MORE VIEWS HISTORY: Right shoulder osteoarthritis FINDINGS: 4 views of the right shoulder were performed with comparison made to 10/23/2024. There is a reverse dbut-kih-kpuubi right total shoulder arthroplasty in near-anatomic position. There is no periprosthetic lucency or fracture. There is mild acromioclavicular osteoarthritis. Procedure Note Levy Gilbert MD PhD - 12/04/2024 EXAMINATION: XR SHOULDER RIGHT 2 OR MORE VIEWS HISTORY: Right shoulder osteoarthritis FINDINGS: 4 views of the right shoulder were performed with comparison made to 10/23/2024. There is a reverse uqpv-acs-mhpsmr right total shoulder arthroplasty in near-anatomic position. There is no periprosthetic lucency or fracture. There is mild acromioclavicular osteoarthritis. IMPRESSION: Reverse rdcc-pbl-sozbbz right total shoulder arthroplasty in near-anatomic position. Electronically signed by: Levy Gilbert M.D. Silvio Le MD IMG XR PROCEDURES Final Re sult * XR Shoulder Right 2+ View (10/23/2024 2:17 PM THERMODYNAMICS PROFESSOR) Anatomical Region Laterality Modality Upper Extremities, Shoulder Right Comp uted Radiography 10/23/2024 2:32 PM THERMODYNAMICS PROFESSOR Impressions 10/23/2024 2:32 PM THERMODYNAMICS PROFESSOR Unchanged reverse total right glenohumeral arthroplasty in expected position. Electronically signed by: Zeke Gauthier M.D. Narrative 10/23/2024 2:32 PM THERMODYNAMICS PROFESSOR XR SHOULDER RIGHT 2 OR MORE VIEWS [...] * POCT lipid panel (10/02/2024 10:07 AM THERMODYNAMICS PROFESSOR) Cholesterol, POC 122 mg/dL HDL, POC 45 mg/dL Triglycerides, POC 137 mg/dL LDL Cholesterol POC 50 mg/dL Chol/HDL Ratio, POC 1.1 Non-HDL Cholesterol, POC 78 mg/dL Cholesterol Total, POC 122 mg/dL Capillary blood 10/02/2024 1 0:07 AM THERMODYNAMICS PROFESSOR Mahnaz Doherty NP POINT OF CARE TEST ORDERABLE S Final Result from Last 3 Months Insurance [employer] * Guarantor: David Canales Zachary Account Type Relation to Patient Date of Phone Billing Address Personal/Family Self 1955 [address] [place] [address] [facility] * Guarantor: David Canales Account Type Relation to Patient Date of Phone Billing Address Personal/Family Self 1955 [address] [place] [address] [facility] Advance Directives For more information, please contact: [phone] * Full Code (Latest Code Status on File) Date Activated Date Inactivated Comments 08/08/2024 7:28 PM 08/09/2024 4:48 PM * Full Code Date Activated Date Inactivated Comments 05/08/2023 5:48 PM 05/09/2023 11:43 PM Care Teams Professor Of Communication Relationship Specialty Start Date End Date Espinoza Meyer MD [address] [place] [address] PCP - General Family Medicine 01/11/20 Kathi Wren NP [address] [facility] [address] [place] [address] Nurse Practitioner Nurse Practitioner 05/17/23 Juanjo Fuentes MD [address] [facility] [address] [place] [address] Radiation Oncologist Radiation Oncology 05/17/23
--- OUTSIDE RECORDS SUMMARY | 2024-12-26 11:46 | XMS_ITS ---
Author Organization [facility] [address] Address [address] [place] [address] Care Team Providers Care Header Up Name Role Phone Espinoza Meyer MD Primary Care Prov ider Kathi Wren NP Unavailable Juanjo Fuentes MD Unavailable Active Problems Problem Noted Date Diagnosed Date Right shoulder pain 08/08/2024 Osteoarthritis of right glenohumeral joint 05/30 Encounter for follow-up surveillance of prostate cancer 05/17/2023 Prostate cancer 03/15/2023 Cancer Staging:Clinical stage from 01/03/2023:Stage IIB(cT1c, cN0, cM0, PSA: 7.2, Grade Group: 2) - Signed by Samm Pool MD on 04/12/2023 History of coronary artery stent placement 12/30 Coronary atherosclerosis of circle coronary evon ry 11/12/2020 Current Treatment and Therapy Plans No current plan information found. Past Treatment and Therapy Plans No past plan information found. Lifetime Dose Tracking * Chemical Lifetime Dose Automatic Entry Manual Entr y DLP 215 mGycm 215 mGycm 0 mGycm
[2024-12-26 12:06] LABS: Hematocrit 45.3 % (42.0-52.0); Hemoglobin 15.2 g/dL (14.0-18.0)
[2024-12-26 12:21] LABS: Albumin Level 5.1 g/dL (3.5-5.1); Estimated Glomerular Filt Rate > 60
[2024-12-26 12:35] LABS: Urine Cotinine NEGATIVE
== END 2024-12-26 11:43 | disposition home or self-care (01) ==
PROVIDERS: PCP Family Medicine Adolescent Medicine; Visit Provider Orthopaedic Surgery
DX: M17.11 Unilateral primary osteoarthritis, right knee (principal); F17.200 Nicotine dependence, unspecified, uncomplicated; Z79.899 Other long term (current) drug therapy
CPT/HCPCS: 80307; 82040; 82565; 85014; 85018

== ENCOUNTER 2024-12-31 14:34 | Outpatient (CLI) | payer OTHER, SELFPAY ==
--- NOTE | ~2024-12-31 | CT_ITS ---
EXAMINATION: CT LE RT wo con DATE: 12/31/2024 14:56 INDICATION: Right knee osteoarthritis for preoperative planning TECHNIQUE: High resolution computed tomography (CT) of the right lower extremity from the hip through the ankle was performed without intravenous contrast. Additional sagittal and coronal reconstruction s were performed. Dose Renato The dose-length product was 1869.83 mGy-cm. COMPARISON: None FINDINGS: Mild genu valgus with tibiofemoral angle of 12 degrees. There is also patella britt with Insall Salvat i ratio of 1.6. No fractures. Tricompartmental osteoarthritis at the right knee, moderate to severe i n the lateral compartment, moderate severity in the patellofemoral compartment and mild in the medial compartment. There are a few loose osteochondral bodies in the anterior, posterior and popliteal rec esses of the joint space. Heterotopic ossification along the superficial suprapatellar fat pad. Moder ate-sized right knee joint effusion at the suprapatellar pouch. Additional polyarticular osteoarthrit is, severe with prominent subarticular cystlike change at the proximal tibiofibular articulation and mild at the right hip, ankle and subtalar joints. Mild osteitis pubis. Small fat-containing left ingu inal hernia. Linear metallic densities at the prostate which could represent surgical clips, brachial therapy seeds or fiducials markers. No pathologically enlarged pelvic or inguinal lymphadenopathy. IMPRESSION: 1. Moderate to severe tricompartmental osteoarthritis at the right knee with mild genu varus, patella britt and moderate-sized joint effusion. Reviewed, dictated and finalized at location A. IMPRESSION: 1. Moderate to severe tricompartmental osteoarthritis at the right knee with mi ld genu varus, patella britt and moderate-sized joint effusion.
--- OUTSIDE RECORDS SUMMARY | 2024-12-31 14:47 | XMS_ITS | Encounter Summary ---
Author Organization [facility] Address [address] [place] [address] Phone Care Team Providers Care Micrographics Services Supervisor Name Role Phone Espinoza Meyer MD Primary Care Prov ider Kathi Wren NP Unavailable [phone] Juanjo Fuentes MD Unavailable [phone] Encounter Details Date Type Department Care Team (Late st Contact Info) Description 12/30/2024 Orders Only [facility] Orthopaedic Surgery [address] [facility] Advanced Medicine 12th [place] [address] [place] [address] Silvio Le MD [address] [facility] [address] [place] [address] Social History Tobacco Use Types Packs/Day Years Used Date Smoking Tobacco: Former Cigarettes 0.3 5.4 2 020 - 1971 Smokeless Tobacco: Never Comments:Seldom social smoke r over the past couple years - none [...] on file 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 Gender Identity Male 01/23/2020 7:54 AM CDT Sexual Orientation Straight 01/23/2020 7: 54 AM CDT documented as of this encounter Ordered Prescriptions Prescription Sig Dispense Quantity Refills Last Filled Start Date End Date amoxicillin (AMOXIL) 500 mg tablet/capsule TAKE FOUR TABLETS/CAPSULE S 1 HOUR PRIOR TO DENTAL PROCEDURE 8 tablet/capsule 2 12/30/2024 documented in this encounter Plan of Treatment Not on file documented as of this encounter Visit Diagnoses Not on filedocumented in this encounter Care Teams Micrographics Services Supervisor Relationship Specialty Start Date End Date Espinoza Meyer MD [address] [place] [address] PCP - General Family Medicine 01/11/20 Kathi Wren NP [address] [facility] [address] [place] [id number] [place] [address] Nurse Practitioner Nurse Practitioner 05/17/23 Juanjo Fuentes MD [address] [facility] [address] [place] [id number] [place] [address] Radiation Oncologist Radiation Oncology 05/17/23 documented as of this encounter
--- OUTSIDE RECORDS SUMMARY | 2024-12-31 14:47 | XMS_ITS ---
Author Organization [facility] [address] Address [address] [place] [address] Care Team Providers Care Accounting Office Manager Name Role Phone Espinoza Meyer MD Primary Care Prov ider Kathi Wren NP Unavailable Juanjo Fuentes MD Unavailable [phone] Active Problems Problem Noted Date Diagnosed Date Right shoulder pain 08/08/2024 Osteoarthritis of right glenohumeral joint 05/30 Encounter for follow-up surveillance of prostate cancer 05/17/2023 Prostate cancer 03/15/2023 Cancer Staging:Clinical stage from 01/03/2023:Stage IIB(cT1c, cN0, cM0, PSA: 7.2, Grade Group: 2) - Signed by Samm Pool MD on 04/12/2023 History of coronary artery stent placement 12/30 Coronary atherosclerosis of habematolel coronary evon ry 11/12/2020 Current Treatment and Therapy Plans No current plan information found. Past Treatment and Therapy Plans No past plan information found. Lifetime Dose Tracking * Chemical Lifetime Dose Automatic Entry Manual Entr y DLP 215 mGycm 215 mGycm 0 mGycm
--- OUTSIDE RECORDS SUMMARY | 2024-12-31 14:47 | XMS_ITS | Clinical Summary ---
Author Organization [facility] [address] Address [address] [place] [address] Care Team Providers Care Educational Technology Coordinator Name Role Phone Espinoza Meyer MD Primary Care Prov ider Kathi Wren NP Unavailable Juanjo Fuentes MD Unavailable [phone] Allergies No known active allergies Medications lisinopriL (PRINIVIL,ZESTR IL) 40 mg tablet Take 1 tablet (40 mg total) by mouth every morning 0 Active nitroglycerin (NITROSTAT) 0.[address] 1 tablet (0.4 mg total) under the tongue daily as needed for chest pain 0 Active hydroCHLOROthia zide (HYDRODIURIL) 25 mg tablet Take 1 tablet (25 mg total) by mouth every morning 2 Active calcium carbonate (TUMS ORAL) Take 2 tablet/chew tab by mouth as needed Active cyclobenzaprine (FLEXERIL) 10 mg tabletIndicatio ns:Muscle Spasm Take 1 tablet (10 mg total) by mouth 3 (three) times a day as needed for muscle spasms for up to 14 days 42 tablet 4 Active acetaminophen 500 mg capsuleIndicati ons:Pain Take 2 capsules (1,000 mg total) by mouth every 6 (six) hours 90 tablet 4 Active aspirin 81 mg enteric coated tabletIndicatio ns:Deep Vein Thrombosis Prevention Take 1 tablet (81 mg total) by mouth 2 (two) times a day for 14 days 28 tablet 4 Active docusate sodium (COLACE) 100 mg capsuleIndicati ons:constipatio n Take 1 capsule (100 mg total) by mouth 2 (two) times a day 60 capsule 4 Active oxyCODONE-aceta minophen (PERCOCET) 7.5-325 mg per tablet Take 1 tablet by mouth 3 (three) times a day 5 Active atorvastatin (LIPITOR) 80 mg tabletIndicatio ns:coronary artery disease,hyperli pidemia Take 0.5 tablets (40 mg total) by mouth every morning 45 tablet 1 5 Active amoxicillin (AMOXIL) 500 mg tablet/capsule TAKE FOUR TABLETS/CAPSUL ES 1 HOUR PRIOR TO DENTAL PROCEDURE 8 tablet/capsul e 2 5 Active Active Problems Problem Noted Date Diagnosed Date Right shoulder pain 08/08/2024 Osteoarthritis of right glenohumeral joint 05/30 Encounter for follow-up surveillance of prostate cancer 05/17/2023 Prostate cancer 03/15/2023 Cancer Staging:Clinical stage from 01/03/2023:Stage IIB(cT1c, cN0, cM0, PSA: 7.2, Grade Group: 2) - Signed by Samm Pool MD on 04/12/2023 History of coronary artery stent placement 12/30 Coronary atherosclerosis of [place] coronary evon ry 11/12/2020 Encounters Date Type Department Care Team Description 12/30/2024 Orders Only [facility] Orthopaedic Surgery [facility] Medicine [address]th [place] [address] [place] [address] Silvio Le MD 12/13/2024 9:40 AM CDT Office Visit [facility] Rad[facility] at [facility] [address] [place] [address] Kathi Wren NP Prostate cancer (HCC) (Primary Dx); Encounter for follow-up surveillance of prostate cancer 12/04/2024 11:45 AM CDT Office Visit [facility] Orthopaedic Surgery [facility] [address]th [place] [address] [place] [address] Silvio Le MD Status post reverse arthroplasty of right shoulder 12/04/2024 11:25 AM CDT - 12/04/2024 11:59 PM CDT Hospital Encounter [facility] ([facility]) [address] [place] [address] Status post reverse arthroplasty of right shoulder Discharge Disposition: Discharge to home or self care 10/23/2024 2:30 PM VORTEX OPERATOR Office Visit [facility] Orthopaedic Surgery [address] [facility] Advanced Medicine 12th [place] [address] [place] [address] Silvio Le MD Status post reverse arthroplasty of right shoulder 10/23/2024 2:11 PM VORTEX OPERATOR - 10/23/2024 11:59 PM VORTEX OPERATOR Hospital Encounter [facility] ([facility]) [address] [place] [address] Silvio Le MD Status post reverse arthroplasty of right shoulder Discharge Disposition: Discharge to home or self care from Last 3 Months Surgical History Surgery Date Site/Laterality Comments CARDIAC STENT PLACEMENT 01/14/[address] CARDIAC CATHETERIZATION 12/20/2019 - 01/19/2020 ARM [...] disease Brother 4 Alex Heart attack Father Lonnie Heart disease Father Lonnie Tuberculosis Maternal Grandfather [...] on file 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 Gender Identity Male 01/23/2020 7:54 AM CDT Sexual Orientation Straight 01/23/2020 7: 54 AM CDT Obstetrics History Last Filed Vital Signs Vital Sign Reading Time Taken Comments Blood Pressure 128/70 10/02/2024 10:02 AM VORTEX OPERATOR Pulse 76 10/02/2024 10:02 AM VORTEX OPERATOR Temperature 36.9 C (98.4 F) 08/09/2024 8:34 AM VORTEX OPERATOR Respiratory Rate 16 08/09/2024 8:34 AM VORTEX OPERATOR Oxygen Saturation 97% 10/02/2024 10:02 AM VORTEX OPERATOR Inhaled Oxygen Concentration - - Weight 92.1 kg (203 lb 1.6 oz) 12/13/2024 9:50 A M CDT Height 182.9 cm (6') 10/02/2024 10:02 AM VORTEX OPERATOR Body Mass Index 27.55 10/02/2024 10:02 AM VORTEX OPERATOR Plan of Treatment Health Maintenance Due Date [...] history exists Medical Devices Implanted Type Area Manager Wealth Management Device Identifier Shelf Expiration Date Model / Serial / Lot Stent Stent Heart Description:X1 [employer] Tornier Aequalis Perform Od42 Mm Reverse Shoulder Standard Sphere Glenoid [id number] - [id number] - [id number] Implanted:Qty: 1 on 08/08/2024 by Silvio Le MD at [facility] Right: Shoulder [employer] 08/09/2028 [id number] / [id number] / [employer] Insert Perform 10 Deg Ret [id number] - [id number] - [id number] Implanted:Qty: 1 on 08/08/2024 by Silvio Le MD at [facility] Right: Shoulder [employer] 01/02/2029 [id number] / [id number] / [employer] Tray Stem Humeral Shoulder Reverse Long Tornier Perform [id number] - [id number] - [id number] Implanted:Qty: 1 on 08/08/2024 by Silvio Le MD at [facility] Right: Shoulder [employer] 05/27/2029 [id number] / [id number] / [employer] Screw Glenoid Locking Reverse Aequalis Perform 5.0x26mm Titanium [id number] - [id number] Implanted:Qty: 2 on 08/08/2024 by Silvio Le MD at [facility] Right: Shoulder [employer] [id number] / / [employer] Aequalis Perform Reversed 5mm 18mm Peripheral Glenoid Screw [id number] - [id number] Implanted:Qty: 1 on 08/08/2024 by Silvio Le MD at [facility] Right: Shoulder [employer] [id number] / / [employer] Aequalis Perform Reversed 5mm 30mm Peripheral Glenoid Screw [id number] - [id number] Implanted:Qty: 1 on 08/08/2024 by Silvio Le MD at [facility] Right: Shoulder [employer] [id number] / / [employer] Sphere Glenoid Centered Post Tornier Perform [id number] - [id number] Implanted:Qty: 1 on 08/08/2024 by Silvio Le MD at [facility] Right: Shoulder [employer] 01/05/2025 [id number] / / [id number] Procedures Procedure Name Priority Date/Time Associated Diagnosis Comments PSA, TOTAL AND FREE Routine 12/06/2024 10:27 AM CDT Prostate cancer (HCC) XR SHOULDER RIGHT 2 OR MORE VIEWS Schedule Routine, Read Routine (OP Routine) 12/04/2024 11:37 AM CDT Status post reverse arthroplasty of right shoulder XR SHOULDER RIGHT 2 OR MORE VIEWS Schedule Routine, Read Routine (OP Routine) 10/23/2024 2:17 PM VORTEX OPERATOR Status post reverse arthroplasty of right shoulder from Last 3 Months Results * (ABNORMAL) [...] 19 < or = 30 93 9 (3)Catalona et al.:TERESITA 277: 4499-9338 (1996) (4)Catalona et al.:TERESITA 279: 4330-9073 (1997) (x)These estimates vary with age, ethnicity, [...] NP LAB BLOOD ORDERABLES F inal Result Performing Organization Address [facility]/State/[facility] Co de Phone Number [employer] [address] [place] [address] * XR Shoulder Right 2+ View (12/04/2024 11:37 AM CDT) Anatomical Region Laterality Modality Upper Extremities, Shoulder Right Comp uted Radiography 12/04/2024 12:3 1 PM CDT Impressions 12/04/2024 12:31 PM CDT Reverse wbpd-yua-lktnjg right total shoulder arthroplasty in near-anatomic position. Electronically signed by: Levy Gilbert M.D. Narrative 12/04/2024 12:31 PM CDT EXAMINATION: XR SHOULDER RIGHT 2 OR MORE VIEWS HISTORY: Right shoulder osteoarthritis FINDINGS: 4 views of the right shoulder were performed with comparison made to 10/23/2024. There is a reverse ukuj-xiv-ifrkyp right total shoulder arthroplasty in near-anatomic position. There is no periprosthetic lucency or fracture. There is mild acromioclavicular osteoarthritis. Procedure Note Levy Gilbert MD PhD - 12/04/2024 EXAMINATION: XR SHOULDER RIGHT 2 OR MORE VIEWS HISTORY: Right shoulder osteoarthritis FINDINGS: 4 views of the right shoulder were performed with comparison made to 10/23/2024. There is a reverse ijfz-cmx-lwkfyi right total shoulder arthroplasty in near-anatomic position. There is no periprosthetic lucency or fracture. There is mild acromioclavicular osteoarthritis. IMPRESSION: Reverse aaop-flx-ubvvdi right total shoulder arthroplasty in near-anatomic position. Electronically signed by: Levy Gilbert M.D. Silvio Le MD IMG XR PROCEDURES Final Re sult * XR Shoulder Right 2+ View (10/23/2024 2:17 PM VORTEX OPERATOR) Anatomical Region Laterality Modality Upper Extremities, Shoulder Right Comp uted Radiography 10/23/2024 2:32 PM VORTEX OPERATOR Impressions 10/23/2024 2:32 PM VORTEX OPERATOR Unchanged reverse total right glenohumeral arthroplasty in expected position. Electronically signed by: Zeke Gauthier M.D. Narrative 10/23/2024 2:32 PM VORTEX OPERATOR XR SHOULDER RIGHT 2 OR MORE VIEWS [...] MD IMG XR PROCEDURES Final Re sult from Last 3 Months Insurance * Guarantor: David Canales Account Type Relation to Patient Date of Phone Billing Address Personal/Family Self [address] [place] [address] [facility] * Guarantor: David Canales Account Type Relation to Patient Date of Phone Billing Address Personal/Family Self 1955 [address] [place] [address] [facility] * Guarantor: David Canales Account Type Relation to Patient Date of Phone Billing Address Personal/Family Self 1955 [address] [place] [address] [facility] [place] [address] Advance Directives For more information, please contact: [phone] * Full Code (Latest Code Status on File) Date Activated Date Inactivated Comments 08/08/2024 7:28 PM 08/09/2024 4:48 PM * Full Code Date Activated Date Inactivated Comments 05/08/2023 5:48 PM 05/09/2023 11:43 PM Care Teams Educational Technology Coordinator Relationship Specialty Start Date End Date Espinoza Meyer MD [address] [place] [address] PCP - General Family Medicine 01/11/20 Kathi Wren NP [address] [place] [address] Nurse Practitioner Nurse Practitioner 05/17/23 Juanjo Fuentes MD [address] [facility] [address] [place] [address] Radiation Oncologist Radiation Oncology 05/17/23
--- OUTSIDE RECORDS SUMMARY | 2024-12-31 14:47 | XMS_ITS | Referral Summary ---
Author Organization [facility] [address] Address [address] [place] [address] Care Team Providers Care Substance Abuse Technician Name Role Phone Espinoza Meyer MD Primary Care Prov ider Kathi Wren NP Unavailable Juanjo Fuentes MD Unavailable [phone] Encounters Date Type Department Care Team Description 12/30/2024 Orders Only [facility] Orthopaedic Surgery [address] [place] [address] Advanced Medicine [address]th [place] [address] [place] [address] Silvio Le MD 12/13/2024 9:40 AM CDT Office Visit [facility] Radiation Oncology at [facility] [address] [place] [address] Kathi Wren NP Prostate cancer (HCC) (Primary Dx); Encounter for follow-up surveillance of prostate cancer 12/04/2024 11:25 AM CDT - 12/04/2024 11:59 PM CDT Hospital Encounter [facility] [address] [place] [address] Status post reverse arthroplasty of right shoulder Discharge Disposition: Discharge to home or self care 12/04/2024 11:45 AM CDT Office Visit [facility] Orthopaedic Surgery [address] [place] [address] Advanced Medicine 12th [place] [address] [place] [address] Silvio Le MD Status post reverse arthroplasty of right shoulder 10/23/2024 2:11 PM DEFENCE FORCE MEMBER OTHER RANKS - 10/23/2024 11:59 PM DEFENCE FORCE MEMBER OTHER RANKS Hospital Encounter [facility] [address] [place] [address] Silvio Le MD Status post reverse arthroplasty of right shoulder Discharge Disposition: Discharge to home or self care 10/23/2024 2:30 PM DEFENCE FORCE MEMBER OTHER RANKS Office Visit [facility] Orthopaedic Surgery [address] [facility] Advanced Medicine 12th [place] [address] [place] [address] Silvio Le MD Status post reverse arthroplasty of right shoulder from Last 3 Months Allergies No known [...] artery stent placement 12/30 Coronary atherosclerosis of [place] coronary evon ry 11/12/2020 Social History Tobacco [...] on file Legal Sex Male 6:36 PM DEFENCE FORCE MEMBER OTHER RANKS Gender Identity Male 01/23/2020 7:54 AM CDT Sexual Orientation Straight 01/23/2020 7: 54 AM CDT Last Filed Vital Signs Vital Sign Reading Time Taken Comments Blood Pressure 128/70 10/02/2024 10:02 AM DEFENCE FORCE MEMBER OTHER RANKS Pulse 76 10/02/2024 10:02 AM DEFENCE FORCE MEMBER OTHER RANKS Temperature 36.9 C (98.4 F) 08/09/2024 8:34 AM DEFENCE FORCE MEMBER OTHER RANKS Respiratory Rate 16 08/09/2024 8:34 AM DEFENCE FORCE MEMBER OTHER RANKS Oxygen Saturation 97% 10/02/2024 10:02 AM DEFENCE FORCE MEMBER OTHER RANKS Inhaled Oxygen Concentration - - Weight 92.1 kg (203 lb 1.6 oz) 12/13/2024 9:50 A M CDT Height 182.9 cm (6') 10/02/2024 10:02 AM DEFENCE FORCE MEMBER OTHER RANKS Body Mass Index 27.55 10/02/2024 10:02 AM DEFENCE FORCE MEMBER OTHER RANKS Plan of Treatment Not on file Medical Devices Implanted Type Area Jetting Machine Operator Device Identifier Shelf Expiration Date Model / Serial / Lot Stent Stent Heart Description:X1 [employer] Tornier Aequalis Perform Od42 Mm Reverse Shoulder Standard Sphere Glenoid [id number] - [id number] - [id number] Implanted:Qty: 1 on 08/08/2024 by Silvio Le MD at [facility] Right: Shoulder [employer] 08/09/2028 [id number] / [id number] / [employer] Insert Perform 10 Deg Ret [id number] - [id number] - [id number] Implanted:Qty: 1 on 08/08/2024 by Silvio Le MD at [facility] Right: Shoulder [employer] 01/02/2029 [id number] / [id number] / [employer] Tray Stem Humeral Shoulder Reverse Long Tornier Perform [id number] - [id number] - [id number] Implanted:Qty: 1 on 08/08/2024 by Silvio Le MD at [facility] Right: Shoulder [employer] 05/27/2029 [id number] / [id number] / [employer] Screw Glenoid Locking Reverse Aequalis Perform 5.0x26mm Titanium [id number] - [id number] Implanted:Qty: 2 on 08/08/2024 by Silvio Le MD at [facility] Right: Shoulder [employer] [id number] / / [employer] Aequalis Perform Reversed 5mm 18mm Peripheral Glenoid Screw [id number] - [id number] Implanted:Qty: 1 on 08/08/2024 by Silvio Le MD at [facility] Right: Shoulder [employer] [id number] / / [employer] Aequalis Perform Reversed 5mm 30mm Peripheral Glenoid Screw [id number] - [id number] Implanted:Qty: 1 on 08/08/2024 by Silvio Le MD at [facility] Right: Shoulder [employer] [id number] / / [employer] Sphere Glenoid Centered Post Tornier Perform 23t69as [id number] - [id number] Implanted:Qty: 1 on 08/08/2024 by Silvio Le MD at [facility] Right: Shoulder [employer] 01/05/2025 [id number] / / [id number] Procedures Procedure Name Priority Date/Time Associated Diagnosis Comments PSA, TOTAL AND FREE Routine 12/06/2024 10:27 AM CDT Prostate cancer (HCC) XR SHOULDER RIGHT 2 OR MORE VIEWS Schedule Routine, Read Routine (OP Routine) 12/04/2024 11:37 AM CDT Status post reverse arthroplasty of right shoulder XR SHOULDER RIGHT 2 OR MORE VIEWS Schedule Routine, Read Routine (OP Routine) 10/23/2024 2:17 PM DEFENCE FORCE MEMBER OTHER RANKS Status post reverse arthroplasty of right shoulder [...] 30 93 9 (3)Catalona et al.:TERESITA 277: 6767-3815 (1996) (4)Catalona et al.:TERESITA 279: 2163-2817 (1997) (x)These estimates vary with age, ethnicity, [...] mind. PSA was performed using the L[place] Immunoassay method. Values obtained from different assay methods cannot be used interchangeably. PSA levels, regardless of value, should not be interpreted as absolute evidence of the presence or absence of disease. Blood 12/06/2024 10:2 7 AM CDT 12/06/2024 10:28 AM CDT Kathi Wren NP LAB BLOOD ORDERABLES F inal Result [employer] [address] [place] [address] * XR Shoulder Right 2+ View (12/04/2024 11:37 AM CDT) Anatomical Region Laterality Modality Upper Extremities, Shoulder Right Comp uted Radiography 12/04/2024 12:3 1 PM CDT Impressions 12/04/2024 12:31 PM CDT Reverse gwos-vet-sntkzd right total shoulder arthroplasty in near-anatomic position. Electronically signed by: Levy Gilbert M.D. Narrative 12/04/2024 12:31 PM CDT EXAMINATION: XR SHOULDER RIGHT 2 OR MORE VIEWS HISTORY: Right shoulder osteoarthritis FINDINGS: 4 views of the right shoulder were performed with comparison made to 10/23/2024. There is a reverse xzco-eaf-yjzlvh right total shoulder arthroplasty in near-anatomic position. There is no periprosthetic lucency or fracture. There is mild acromioclavicular osteoarthritis. Procedure Note Levy Gilbert MD PhD - 12/04/2024 EXAMINATION: XR SHOULDER RIGHT 2 OR MORE VIEWS HISTORY: Right shoulder osteoarthritis FINDINGS: 4 views of the right shoulder were performed with comparison made to 10/23/2024. There is a reverse jghf-ayb-zgpefu right total shoulder arthroplasty in near-anatomic position. There is no periprosthetic lucency or fracture. There is mild acromioclavicular osteoarthritis. IMPRESSION: Reverse swbv-kmd-bvxfhn right total shoulder arthroplasty in near-anatomic position. Electronically signed by: Levy Gilbert M.D. Silvio Le MD IMG XR PROCEDURES Final Re sult * XR Shoulder Right 2+ View (10/23/2024 2:17 PM DEFENCE FORCE MEMBER OTHER RANKS) Anatomical Region Laterality Modality Upper Extremities, Shoulder Right Comp uted Radiography 10/23/2024 2:32 PM DEFENCE FORCE MEMBER OTHER RANKS Impressions 10/23/2024 2:32 PM DEFENCE FORCE MEMBER OTHER RANKS Unchanged reverse total right glenohumeral arthroplasty in expected position. Electronically signed by: Zeke Gauthier M.D. Narrative 10/23/2024 2:32 PM DEFENCE FORCE MEMBER OTHER RANKS XR SHOULDER RIGHT 2 OR MORE VIEWS [...] Re sult from Last 3 Months Insurance [facility] * Guarantor: Parker David Sharma Account Type Relation to Patient Date of Phone Billing Address Personal/Family Self 1955 [address] [place] [address] [facility] Advance Directives For more information, please contact: [phone] * Full Code (Latest Code Status on File) Date Activated Date Inactivated Comments 08/08/2024 7:28 PM 08/09/2024 4:48 PM * Full Code Date Activated Date Inactivated Comments 05/08/2023 5:48 PM 05/09/2023 11:43 PM Care Teams Substance Abuse Technician Relationship Specialty Start Date End Date Espinoza Meyer MD [address] [place] [address] PCP - General Family Medicine 01/11/20 Kathi Wren NP [address] [place] [id number] [place] [address] Nurse Practitioner Nurse Practitioner 05/17/23 Juanjo Fuentes MD [address] [place] [address] Radiation Oncologist Radiation Oncology 05/17/23
== END 2024-12-31 14:35 | disposition home or self-care (01) ==
PROVIDERS: PCP Family Medicine Adolescent Medicine; Visit Provider Orthopaedic Surgery
DX: M17.11 Unilateral primary osteoarthritis, right knee (principal)
CPT/HCPCS: 73700

== ENCOUNTER 2025-02-14 00:13 | Outpatient (CLI) | payer OTHER, SELFPAY ==
--- NOTE | 2025-02-14 10:44 | ECG_ITS ---
Test Date: 2025-02-14 11:03:15 Measurements Intervals [place] Rate: 79 P: -1 ND: 212 QRS: -20 QRSD: 127 T: 22 QT: 377 QTc: 433 Interpretive Statements SINUS RHYTHM WITH FIRST DEGREE AV BLOCK INTRAVENTRICULAR CONDUCTION DELAY BORDERLINE R WAVE PROGRESSION, ANTERIOR LEADS BASELINE ARTIFACT- I, II, III, AVR, AVL, AVF, V1, V4-V6 BORDERLINE ECG No previous ECG available for comparison Electronically Signed On 02-14-2025 11:31:12 CDT by Hari Henry D.O.
[2025-02-14 11:15] LABS: Basophils Absolute Auto 0.1 K/mm3 (0.0-0.1); Basophils Percent Auto 0.6 % (0.2-1.2); Eosinophils Absolute Auto 0.2 K/mm3 (0-0.3); Eosinophils Percent Auto 1.7 % (0-4.4); Hematocrit 41.7 % (42.0-52.0); Hemoglobin 14.1 g/dL (14.0-18.0); Immature Granulocyte Absolute 0.06 K/mm3 (0.00-0.031); Immature Granulocyte Percent A 0.5 % (0-0.5); Lymphocytes Absolute Auto 1.56 K/mm3 (0.9-3.2); Lymphocytes Percent Auto 13.4 % (18.3-44.2); Mean Corpuscular HGB Conc 33.8 g/dl (32-36); Mean Corpuscular Hemoglobin 34.1 pg (26-34); Mean Corpuscular Volume 100.7 fl (80-100); Mean Platelet Volume 9.3 fl (7.4-10.4); Monocytes Absolute Auto 1.5 K/mm3 (0.1-0.6); Monocytes Percent Auto 12.5 % (2.6-8.5); Neutrophils Absolute Auto 8.3 K/mm3 (1.3-6.7); Neutrophils Percent Auto 71.3 % (45.5-73.1); Platelet Count Result 235 k/mm3 (150-375); Red Blood Count 4.14 M/mm3 (4.6-6.20); Red Cell Distribution Width 13.1 % (11.5-14.5); White Blood Count 11.6 K/mm3 (4.5-10.0)
[2025-02-14 12:29] LABS: MRSA (PCR) NOT DETECTED (NOT DETECTE)
[2025-02-14 12:55] LABS: Hemoglobin A1C. 5.6 % (<5.7)
[2025-02-14 13:02] LABS: Urine Cotinine NEGATIVE
[2025-02-14 14:21] LABS: Anion Gap 11 mmol/L (4-12); Blood Urea Nitrogen 23 mg/dL (9-20); Calcium 9.7 mg/dL (8.4-10.2); Carbon Dioxide 29 mmol/L (22-30); Chloride 99 mmol/L (98-107); Estimated Glomerular Filt Rate > 60; Glucose 91 mg/dL (65-110); Potassium 3.7 mmol/L (3.4-5.0); Sodium 139 mmol/L (137-145)
[2025-02-14 14:29] LABS: Albumin Level 4.9 g/dL (3.5-5.1)
== END 2025-02-14 00:14 | disposition home or self-care (01) ==
PROVIDERS: Anesthesiology; PCP Family Medicine Adolescent Medicine; Visit Provider Orthopaedic Surgery
DX: M17.11 Unilateral primary osteoarthritis, right knee (principal); Z79.899 Other long term (current) drug therapy; Z01.818 Encounter for other preprocedural examination
CPT/HCPCS: 36415; 80048; 80307; 82040; 83036; 85025; 87641; 93005

== ENCOUNTER 2025-02-28 13:04 | Outpatient (CLI) | payer OTHER, SELFPAY ==
--- NOTE | ~2025-02-28 | CT_ITS ---
Non-contrast CT scan of the Abdomen and Pelvis Clinical indication: Left lower quadrant pain Technique: 2.5 mm axial scans were obtained through the abdomen and pelvis without intravenous or or al contrast. Dose reduction technique was used on this scan by utilizing automated exposure control a nd iterative reconstruction technique. The dose-length product (DLP) was 852.90 mGy-cm. Findings: Images through the lung bases reveal no abnormalities. There is no evidence of renal or ureteral calculi. The kidneys and the ureters are nondilated. The liver, spleen, pancreas, gallbladder, and adrenals appear normal. There are atherosclerotic calci fications of the aorta. . There is no evidence of bowel obstruction. Images through the pelvis were performed. There is no evidence of ascites or lymphadenopathy. Urinary bladder unremarkable. No pelvic mass seen. No ascites. There are bilateral L5 pars interarticularis defects, with 8 mm anterolisthesis of L5 over S1. Impression: No acute abnormality. Bilateral L5 pars interarticularis defects, with 8 mm anterolisthesis of L5 over S1. Reviewed, dictated and finalized at [facility]. Impression: No acute abnormality. Bilateral L5 pars interarticularis defects, with 8 mm anterolisthesis of L5 ove r S1.
== END 2025-02-28 13:05 | disposition home or self-care (01) ==
LOC: MICIMG 13:04
PROVIDERS: PCP Family Medicine Adolescent Medicine; Visit Provider Family Medicine Adolescent Medicine
DX: R10.32 Left lower quadrant pain (principal)
CPT/HCPCS: 74176

== ENCOUNTER 2025-03-13 00:50 | Day surgery (SDC) | payer OTHER, SELFPAY ==
[2025-02-14 10:11] VITALS: BP 133/76; PULSE 82; RESP 16; TEMP 37.2; O2SAT 99; BMI 27.8
--- NOTE | 2025-02-14 10:30 | PC.NURSE ---
Report to the Outpatient Waiting Room, entrance under the green pavilion located off [facility], at time __1130am on date __03/13/25 . Planned Procedure Time: __1:30pm .? Time changes happen often and if your time is changed the preop area will call you the afternoon before. - You and your visitor will be asked to self-screen and do not enter if you have any COVID symptoms. Please call surgeon if you need to reschedule. - A mask is optional within the hospital at this time. Patients may have clear liquids (water, carbonated beverages, clear teas, apple juice) until 3 hours prior to surgery with a maximum of 20 ounces. - No food from midnight until time of surgery and no smoking, or chewing tobacco (or any form of nicotine). No chewing gum, candy or mints. (10:30am) Take only the following medications with a SIP of water on the morning of surgery: ___Oxycodone if needed DO NOT STOP ANY OF YOUR OTHER PRESCRIPTION MEDICATIONS PRIOR TO SURGERY EXCEPT THE FOLLOWING Hold all vitamins and supplements for 3 days per anesthesiologist. Date of last dose 03/09/25 Medications to discontinue per physician Aspirin for [address] Carney Date to take last dose 03/04/25 Please no make-up, nail estonian, hairspray, perfume, deodorant, or body powder the day of surgery.? No jewelry (including any body piercings) or valuables the day of surgery, leave them at home.? Please take a shower or bath the night before, or the morning of, surgery with an antibacterial soap.? Wear comfortable, loose fitting clothing.? Bring overnight bag, Cell phone, shift boss. - Jewelry must be removed prior to entering the operating room.? Rings and piercings that are not removed may be cut off. - The hospital will not accept responsibility for valuables.? - Please leave all valuables, including medications, at home the day of surgery. If you are going home after surgery, a licensed bus driver supervisor must drive you home.? - NO public transportation without another adult if you receive anesthesia. - We recommend that an adult stay with you for 24 hours following discharge. - We also recommend that you do not drive, make important decision, drink alcoholic beverages, or take any drugs that were not prescribed by your health care provider for at least 24 hours after your discharge time. Follow any additional instructions given to you from your surgeon. Telephone instructions given to ___Patient and asked if any additional questions and then verbalized understanding. Patient advised to call surgeon office or pre surgery nurse liaison [phone] if any additional questions.
[2025-03-13] VITALS (13 sets, daily range): BP systolic 104–146; BP diastolic 54–80; PULSE 71–98; RESP 12–20; TEMP 35.8–36.7; O2SAT 92–99; BMI 27.0
--- NOTE | ~2025-03-13 | XR_ITS ---
EXAMINATION: [id number] DATE: 03/13/2025 10:38 CDT INDICATION: Right total knee arthroplasty TECHNIQUE: 2 views right knee FINDINGS: There is a right total knee arthroplasty in expected position. Subcutaneous gas with fluid and air in the joint are consistent with recent surgery. No evidence of periprosthetic fracture. IMPRESSION: 1. Recent right total knee arthroplasty. Reviewed, dictated and finalized at location A.
--- OUTSIDE RECORDS SUMMARY | 2025-03-13 00:53 | XMS_ITS | Continuity of Care Document ---
Author Organization [facility] Address [address] [place] [address] [address] [place] [address] Phone Care Team Providers Care Finance Assistant Name Role Phone Sanket Victor PT Unavailable Unavailable Procedures Procedure Date Therapeutic Activities Neuromuscular Re-Ed Therapeutic Activities Neuromuscular Re-Ed Therapeutic Activities Neuromuscular Re-Ed Therapeutic Activities Neuromuscular Re-Ed Therapeutic Activities Neuromuscular Re-Ed Therapeutic Activities Neuromuscular Re-Ed Therapeutic Activities Therapeutic Exercise Progress Note Therapeutic Activities Therapeutic Exercise Therapeutic Activities Therapeutic Exercise Therapeutic Activities Therapeutic Exercise Therapeutic Activities Therapeutic Exercise Therapeutic Activities Therapeutic Exercise Therapeutic Activities Therapeutic Exercise Therapeutic Activities Therapeutic Exercise Doc neg elder mal no plan PT Evaluation Low Complexity Therapeutic Activities Therapeutic Exercise Advance Directives Directive Yes / No Effective Date File Name No Information Encounters Encounter Description Practice Location Reason(s) For Visit Diagnoses Date Provider Providers Copied on Encounter [facility], [address] [place], [place] [address], [place], [place], [id number], [place] tel:[phone] [place] No Information Valente Sanket. . Referring Provider: Silvio Le, [address], [place], [address]. tel:[phone] [facility], [address], [place], [place], [id number], [place] tel:[phone] [place] No Information Valente Sanket. . Referring Provider: Silvio Le, [address], [place], [address]. tel:[phone] [place] [address], [address], [place], [place], [id number], [place] tel:[phone] [place] No Information Valente Sanket. . Referring Provider: Silvio Le [address], [place], [address]. tel:[phone] [place] [address], [address], [place], [place], [id number], [place] tel:[phone] [place] No Information Valente Sanket. . Referring Provider: Silvio Le, [address], [place], [address]. tel:[phone] [facility], [address], [place], [place], [id number], [place] tel:[phone] [place] No Information Valente Sanket. . Referring Provider: Silvio Le [address], [place], [address]. tel:[phone] [facility], [address], [place], [place], [id number], [place] tel:[phone] [place] No Information Valente Sanket. . Referring Provider: Silvio Le [address], [place], [address]. tel:[phone] [facility], [address], [place], [place], [id number], [place] tel:[phone] [place] No Information Valente Sanket. . Referring Provider: Silvio Le, [address], [place], [address]. tel:[phone] [facility], [address], [place], [place], [id number], [place] tel:[phone] [place] No Information Valente Sanket. . Referring Provider: Silvio Le, [address], [place], [address]. tel:[phone] [facility], [address], [place], [place], [id number], [place] tel:[phone] [place] No Information Valente Sanket. . Referring Provider: Silvio Le, [facility] [address], [place], [address]. tel:[phone] [facility], [address], [place], [place], [id number], [place] tel:[phone] [place] No Information Valente Mainyn. . Referring Provider: Silvio Le, [address], [place], [address]. tel:[phone] [facility], [address], [place], [place], [id number], [place] tel:[phone] [place] No Information Valente Mainyn. . Referring Provider: Silvio Le, [address], [place], [address]. tel:[phone] [facility], [address], [place], [place], [id number], [place] tel:[phone] [place] No Information Valente Mainyn. . Referring Provider: Silvio Le [address] [facility], [facility] [place], [address]. tel:[phone] [facility], [address] [place] [address], [id number], tel:[phone] [place] No Information Vlaente Mainyn. . Referring Provider: Silvio Le [address] [place] [address], [facility] [place], [address]. tel:[phone] [facility], [address] [place] [address], [id number], tel:[phone] [facility] No Information Valente Mainyn. . Referring Provider: Silvio Le [address] [place] [address], [facility] [place], [address]. tel:[phone], [id number], tel:[phone] [place] No Information Valente Mainyn. . Referring Provider: Silvio Le [address] [place] [address], [facility] [place], [address]. tel:[phone] Family History Family Member Type Diagnosis Age At Onset No Information Payers Payer name Insurance type Covered green party ID Conrad horowitz(s) [employer] CI [id number] Social History Type Description Quantity Date Captured Comments Sex Male Smoking Status No Information Chief Complaint And Reason For Visit No Information Reason For Referral Reason For Referral No Information History Of Present Illness Encounter Date Complaint History Of Prese nt Illness No Information Functional Status Date Functional Assessmen t No Information Instructions Date Instruction Additional Infor mation No Information Assessments Type Assessment Date No Information Patient Care Teams Name Effective Dates (start - stop) Status Members No Information
--- OUTSIDE RECORDS SUMMARY | 2025-03-13 00:53 | XMS_ITS | Referral Summary ---
Author Organization [facility] [address] Address [address] [place] [address] Care Team Providers Care Guest Services Assistant Name Role Phone Espinoza Meyer MD Primary Care Prov ider Kathi Wren NP Unavailable [phone] Juanjo Fuentes MD Unavailable [phone] Encounters Date Type Department Care Team Description 03/07/2025 10:40 AM CDT Office Visit [facility] Radiation Oncology at [facility] [address] [address] Kathi Wren NP Encounter for follow-up surveillance of prostate cancer (Primary Dx); Prostate cancer (HCC) 12/30/2024 Orders Only [facility] Orthopaedic Surgery [facility] Advanced Medicine [address]th [place] [address] [place] [address] Silvio Le MD 12/13/2024 9:40 AM CDT Office Visit [facility] Radiation Oncology at [facility] [address] [address] Kathi Wren NP Prostate cancer (HCC) (Primary Dx); Encounter for follow-up surveillance of prostate cancer from Last 3 Months Allergies No known [...] PROCEDURE 8 tablet/capsul e 2 5 Active carisoprodoL (SOMA) 350 mg tablet Take 1 tablet (350 mg total) by mouth nightly at bedtime 5 Active Active Problems Problem Noted Date Diagnosed Date Right shoulder pain 08/08/2024 Osteoarthritis of right glenohumeral joint 05/30 Encounter for follow-up surveillance of prostate cancer 05/17/2023 Prostate cancer 03/15/2023 Cancer Staging:Clinical stage from 01/03/2023:Stage IIB(cT1c, cN0, cM0, PSA: 7.2, Grade Group: 2) - Signed by Samm Pool MD on 04/12/2023 History of coronary artery stent placement 12/30 Coronary atherosclerosis of [place] coronary evon ry 11/12/2020 Social History Tobacco Use Types Packs/Day Years Used Date Smoking Tobacco: Former Cigarettes 0.3 5.6 2 020 - 1970 Smokeless Tobacco: Never Tobacco Cessation:Counseling Given: Not [...] on file Legal Sex Male 6:36 PM [employer] Gender Identity Male 01/23/2020 7:54 AM CDT Sexual Orientation Straight 01/23/2020 7: 54 AM CDT Last Filed Vital Signs Vital Sign Reading Time Taken Comments Blood Pressure 128/70 10/02/2024 10:02 AM [employer] Pulse 76 10/02/2024 10:02 AM [employer] Temperature 36.9 C (98.4 F) 08/09/2024 8:34 AM [employer] Respiratory Rate 16 08/09/2024 8:34 AM [employer] Oxygen Saturation 97% 10/02/2024 10:02 AM [employer] Inhaled Oxygen Concentration - - Weight 92.1 kg (203 lb) 03/07/2025 10:36 AM CDT Height 182.9 cm (6') 10/02/2024 10:02 AM [employer] Body Mass Index 27.53 10/02/2024 10:02 AM [employer] Plan of Treatment Not on file Medical Devices Implanted Type Area Beef Farmer Device Identifier Shelf Expiration Date Model / Serial / Lot Stent Stent Heart Description:X1 [employer] Tornier Aequalis Perform Od42 Mm Reverse Shoulder Standard Sphere Glenoid [id number] - [id number] - [id number] Implanted:Qty: 1 on 08/08/2024 by Silvio Le MD at [facility] Right: Shoulder [employer] 08/09/2028 [id number] / [id number] / [employer] Insert Perform 10 Deg Ret [id number] - [id number] - [id number] Implanted:Qty: 1 on 08/08/2024 by Silvio Le MD at [facility] Right: Shoulder [employer] 01/02/2029 [id number] / [id number] / [employer] Tray Stem Humeral Shoulder Reverse Long Tornier Perform [id number] - [id number] - [id number] Implanted:Qty: 1 on 08/08/2024 by Silvio Le MD at [facility] Right: Shoulder [employer] 05/27/2029 [id number] / [id number] / [employer] Screw Glenoid Locking Reverse Aequalis Perform 5.0x26mm Titanium [id number] - [id number] Implanted:Qty: 2 on 08/08/2024 by Silvio Le MD at [facility] Right: Shoulder [employer] [id number] / / [employer] Aequalis Perform Reversed 5mm 18mm Peripheral Glenoid Screw [id number] - [id number] Implanted:Qty: 1 on 08/08/2024 by Silvio Le MD at [facility] Right: Shoulder [employer] [id number] / / [employer] Aequalis Perform Reversed 5mm 30mm Peripheral Glenoid Screw [id number] - [id number] Implanted:Qty: 1 on 08/08/2024 by Silvio Le MD at [facility] Right: Shoulder [employer] [id number] / / [employer] Sphere Glenoid Centered Post Tornier Perform [id number] - [id number] Implanted:Qty: 1 on 08/08/2024 by Silvio Le MD at [facility] Right: Shoulder [employer] 01/05/2025 [id number] / / [id number] Procedures Procedure Name Priority Date/Time Associated Diagnosis Comments PSA, TOTAL AND FREE Routine 02/28/2025 1 2:44 PM CDT Prostate cancer (HCC) from Last 3 Months Results * (ABNORMAL) PSA, total and free (02/28/2025 12:44 PM CDT) PSA 1.4 < OR = 4.0 ng/mL [facility] PSA, free 0.1 ng/mL [facility] PSA, free 7(L) >25 % (calc) [facility] Comment: PSA(ng/mL) Free PSA(%) Estimated(x) Probability of Cancer(as%) 0-2.5 (*) Approx. 1 2.6-4.0(1) 0-27(2) 24(3) 4.1-10(4) 0-10 56 11-15 28 16-20 20 21-25 16 >or =26 8 >10(+) N/A >50 References:(1)Liam et al.:Urology 60: 469-474 (2001) (2)Yessiona et al.:J.Urol 168: 922-925 (2001) Free PSA(%) Sensitivity(%) Specificity(%) < or = 25 85 19 < or = 30 93 9 (3)Catalona et al.:TERESITA 277: 9459-7677 (1996) (4)Catalona et al.:TERESITA 279: 4969-5840 (1997) (x)These estimates vary with age, ethnicity, [...] the presence or absence of disease. Blood 02/28/2025 12:4 4 PM CDT 02/28/2025 12:45 PM CDT Kathi Wren PERIPHERAL VASCULAR TECH LAB BLOOD ORDERABLES [facility] [address] [place] [address] from Last 3 Months Insurance [facility] * Guarantor: David Canales Account Type Relation to Patient Date of Phone Billing Address Personal/Family Self 1955 [address] [place] [address] [facility] Advance Directives For more information, please contact: [phone] * Full Code (Latest Code Status on File) Date Activated Date Inactivated Comments 08/08/2024 7:28 PM 08/09/2024 4:48 PM * Full Code Date Activated Date Inactivated Comments 05/08/2023 5:48 PM 05/09/2023 11:43 PM Care Teams Guest Services Assistant Relationship Specialty Start Date End Date Espinoza Meyer MD [address] [place] [address] PCP - General Family Medicine 01/11/20 Kathi Wren NP [address] [place] [address] Nurse Practitioner Nurse Practitioner 05/17/23 Juanjo Fuentes MD [address] [place] [address] Radiation Oncologist Radiation Oncology 05/17/23
--- OUTSIDE RECORDS SUMMARY | 2025-03-13 00:53 | XMS_ITS | Clinical Summary ---
Author Organization [facility] [address] Address [address] [place] [address] Care Team Providers Care Histology Specialist Name Role Phone Espinoza Meyer MD Primary Care Prov ider Kathi Wren NP Unavailable Juanjo Fuentes MD Unavailable [phone] Allergies No known active allergies Medications lisinopriL [...] artery stent placement 12/30 Coronary atherosclerosis of [place] coronary evon ry 11/12/2020 Encounters Date Type Department Care Team Description 03/07/2025 10:40 AM CDT Office Visit [facility] [address] [place] [address] Kathi Wren NP Encounter for follow-up surveillance of prostate cancer (Primary Dx); Prostate cancer (HCC) 12/30/2024 Orders Only [facility] Orthopa[facility] Surgery [address] [facility] Medicine 12th [place] [address] [place] [address] Silvio Le MD 12/13/2024 9:40 AM CDT Office Visit [facility] [address] [place] [address] Kathi Wren NP Prostate cancer (HCC) (Primary Dx); Encounter for follow-up surveillance of prostate cancer from Last 3 Months Surgical History Surgery Date Site/Laterality Comments CARDIAC STENT PLACEMENT 01/14/[address] CARDIAC CATHETERIZATION 12/20/2019 - 01/19/2020 ARM [...] Heart attack Father Fleming Heart disease Father Fleming Tuberculosis Maternal Grandfather Sudden Cardiac Maternal Grandmother [...] Former Cigarettes 0.3 5.6 2 020 - 1971 Smokeless Tobacco: Never [...] on file 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 Gender Identity Male 01/23/2020 7:54 AM CDT Sexual Orientation Straight 01/23/2020 7: 54 AM CDT Obstetrics History Last Filed Vital Signs Vital Sign Reading Time Taken Comments Blood Pressure 128/70 10/02/2024 10:02 AM EMISSIONS TESTING TECHNICIAN Pulse 76 10/02/2024 10:02 AM EMISSIONS TESTING TECHNICIAN Temperature 36.9 C (98.4 F) 08/09/2024 8:34 AM EMISSIONS TESTING TECHNICIAN Respiratory Rate 16 08/09/2024 8:34 AM EMISSIONS TESTING TECHNICIAN Oxygen Saturation 97% 10/02/2024 10:02 AM EMISSIONS TESTING TECHNICIAN Inhaled Oxygen Concentration - - Weight 92.1 kg (203 lb) 03/07/2025 10:36 AM CDT Height 182.9 cm (6') 10/02/2024 10:02 AM EMISSIONS TESTING TECHNICIAN Body Mass Index 27.53 10/02/2024 10:02 AM EMISSIONS TESTING TECHNICIAN Plan of Treatment Health Maintenance Due Date Last Done Comments Colon Cancer Screening-Colonoscopy 1955 Depression Screening 1955 Hepatitis C Screening 1955 DTaP/Tdap/Td Vaccine (1 - Tdap) 1964 Hepatitis B Screening 11/10/1971 Pneumococcal vaccine 65+ (1 of 1 - PCV) 11/10/2003 Zoster Vaccine (1 of 2) 11/10/2003 Abdominal Aortic Aneurysm (A AA) Screen 2018 Well Visit 65+ 2018 Influenza Vaccine (#1) 2025 Fall Risk Assessment 08/09/2025 08/09/2024, 03/03/20 23 Prostate Cancer Screening-PSA Discontinued , 12/06/2024, 09/09/2024, Additional history exists Medical Devices Implanted Type Area Marketing Assistant Device Identifier Shelf Expiration Date Model / Serial / Lot Stent Stent Heart Description:X1 [employer] Tornier Aequalis Perform Od42 Mm Reverse Shoulder Standard Sphere Glenoid [id number] - [id number] - [id number] Implanted:Qty: 1 on 08/08/2024 by Silvio Le MD at [facility] Right: Shoulder [address] [employer] 08/09/2028 [id number] / [id number] / [employer] Insert Perform 10 Deg Ret [id number] - [id number] - [id number] Implanted:Qty: 1 on 08/08/2024 by Silvio Le MD at [facility] Right: Shoulder [employer] 01/02/2029 [id number] / [id number] / [employer] Tray Stem Humeral Shoulder Reverse Long Tornier Perform [id number] - [id number] - [id number] Implanted:Qty: 1 on 08/08/2024 by Silvio Le MD at [facility] Right: Shoulder [employer] 05/27/2029 [id number] / [id number] / [employer] Screw Glenoid Locking Reverse Aequalis Perform 5.0x26mm Titanium [id number] - [id number] Implanted:Qty: 2 on 08/08/2024 by Silvio Le MD at [facility] Right: Shoulder [employer] [id number] / / [employer] Aequalis Perform Reversed 5mm 18mm Peripheral Glenoid Screw [id number] - [id number] Implanted:Qty: 1 on 08/08/2024 by Silvio Le MD at [facility] Right: Shoulder [employer] [id number] / / [employer] Aequalis Perform Reversed 5mm 30mm Peripheral Glenoid Screw [id number] - [id number] Implanted:Qty: 1 on 08/08/2024 by Silvio Le MD at [facility] Right: Shoulder [employer] [id number] / / [employer] Sphere Glenoid Centered Post Tornier Perform [id number] - [id number] Implanted:Qty: 1 on 08/08/2024 by Silvio Le MD at [facility] Right: Shoulder [employer] 01/05/2025 [id number] / / [id number] Procedures Procedure Name Priority Date/Time Associated Diagnosis [...] 30 93 9 (3)Catalona et al.:TERESITA 277: 7936-6237 (1996) (4)Catalona et al.:TERESITA 279: [phone] (1997) (x)These estimates vary with age, ethnicity, [...] mind. PSA was performed using the Lester Austin Immunoassay method. Values obtained from different assay methods cannot be used interchangeably. PSA levels, regardless of value, should not be interpreted as absolute evidence of the presence or absence of disease. Blood 02/28/2025 12:4 4 PM CDT 02/28/2025 12:45 PM CDT Kathi Palacios Siena ARMHOLE RAISER LOCKSTITCH LAB BLOOD ORDERABLES F inal Result [facility] [address] [facility] [place] [address] from Last 3 Months Insurance * Guarantor: David Canales Account Type Relation to Patient Date of Phone Billing Address Personal/Family Self 1955 [address] [place] [address] [facility] * Guarantor: David Canales Account Type Relation to Patient Date of Phone Billing Address Personal/Family Self 1955 [address] [place] [address] [facility] * Guarantor: David Canales Account Type Relation to Patient Date of Phone Billing Address Personal/Family Self 1955 [address] [place] [address] [facility] Advance Directives For more information, please contact: [phone] * Full Code (Latest Code Status on File) Date Activated Date Inactivated Comments 08/08/2024 7:28 PM 08/09/2024 4:48 PM * Full Code Date Activated Date Inactivated Comments 05/08/2023 5:48 PM 05/09/2023 11:43 PM Care Teams Histology Specialist Relationship Specialty Start Date End Date Espinoza Meyer MD [address] [place] [address] PCP - General Family Medicine 01/11/20 Kathi Wren NP [address] [place] [address] Nurse Practitioner Nurse Practitioner 05/17/23 Juanjo Fuentes MD [address] [place] [address] Radiation Oncologist Radiation Oncology 05/17/23
--- OUTSIDE RECORDS SUMMARY | 2025-03-13 00:53 | XMS_ITS ---
Author Organization [facility] [address] Address [address] [place] [address] Care Team Providers Care Maintenance Operator Name Role Phone Espinoza Meyer MD Primary Care Prov ider Kathi Wren NP Unavailable Juanjo Fuentes MD Unavailable [phone] Active Problems Problem Noted Date Diagnosed Date Right shoulder pain 08/08/2024 Osteoarthritis of right glenohumeral joint 05/30 Encounter for follow-up surveillance of prostate cancer 05/17/2023 Prostate cancer 03/15/2023 Cancer Staging:Clinical stage from 01/03/2023:Stage IIB(cT1c, cN0, cM0, PSA: 7.2, Grade Group: 2) - Signed by Samm Pool MD on 04/12/2023 History of coronary artery stent placement 12/30 Coronary atherosclerosis of [place] coronary evon ry 11/12/2020 Current Treatment and Therapy Plans No current plan information found. Past Treatment and Therapy Plans No past plan information found. Lifetime Dose Tracking * Chemical Lifetime Dose Automatic Entry Manual Entr y DLP 215 mGycm 215 mGycm 0 mGycm
--- NOTE | 2025-03-13 07:06 | P.PNAN_ITS ---
Anes - Initial Pre Proc Eval Procedure: Operation Date: 03/13/25 07:30 Proposed Procedures p Right Custom Total Knee Arthroplasty - Reyes Carney MD Date/Time: 03/13/25 07:06 Surgeon: Reyes Carnye MD Pre Op Diagnosis: prim oa rt knee Patient Data Age: 69 Gender: M Height: 1.82 m Weight: 91.9 kg Last Vital Signs Temp 99.0 F 02/14/25 10:11 Pulse 82 02/14/25 10:11 Resp 16 02/14/25 10:11 BP 133/76 02/14/25 10:11 Pulse Ox 99 02/14/25 10:11 O2 Del Method Room Air 02/14/25 10:11 Allergies Allergy/AdvReac Type Severity Reaction Status Date / Time No Known Allergies Allergy Verified 03/13/25 06:32 Home Medications ?Medication ?Instructions ?Recorded ?Confirmed ?Type aspirin 81 mg tablet,delayed 81 mg PO QAM #30 tabs 01/15/20 03/13/25 Rx release multivitamin 1 tablet PO DAILY 09/13/21 03/13/25 History lisinopril 40 mg tablet See Rx Instructions .Route 06/13/24 03/13/25 Rx .COMPLEX #90 tabs atorvastatin 40 mg tablet 40 mg PO DAILY 06/26/24 03/13/25 History hydrochlorothiazide 25 mg tablet 25 mg PO DAILY #90 tabs 09/15/24 03/13/25 Rx carisoprodol 350 mg tablet 350 mg PO QHS #30 tabs 02/16/25 03/13/25 Rx oxycodone-acetaminophen 7.5 mg-325 1 tablet PO TID #90 tabs 02/25/25 03/13/25 Rx mg tablet Patient hx anesthesia problems: none Family hx anesthesia problems: none Results Review: All pre-operative results and documents have been reviewed as part of the pre- operative evaluation. [facility] Past Medical History Medical History History of brachytherapy (~2022) Valgus deformity, not elsewhere classified, right knee Chronic instability of knee, right knee Effusion of knee joint Chronic, continuous use of opioids Personal history of nicotine dependence quit 12/2019 History of non-ST elevation myocardial infarction (NSTEMI) (12/2019) History of SC (myocardial infarction) 12/2019 CAD (coronary artery disease) Aortic atherosclerosis lumbar spine 03/2014 Allergic rhinitis Osteoarthritis of knees, bilateral Osteoarthritis of right shoulder Hypertension Surgical History Surgical History H/O angioplasty (~2019) S/p reverse total shoulder arthroplasty (~07/2024) History of surgery on arm left History of coronary artery stent placement 12/2019 Family History Family History Mother Congestive heart failure Acute myocardial infarction Diabetes mellitus Heart disease Hypertension Father Congestive heart failure Acute myocardial infarction Heart disease Hypertension Sibling Congestive heart failure Acute myocardial infarction Heart disease Hypertension Grandparent Acute myocardial infarction Heart disease Social History Social History Smoking packs per day: 0.5 Smoking cigarettes per day: 10.0 Years smoked: 30 Smoking pack-years: 15.00 Smoking status: Former smoker Tobacco type: cigarettes Second hand tobacco smoke exposure: Yes Smoking end date: 01/14/20 Additional smoking assessment comments: STATES OCCASIONALLY SMOKED 1-2 CIGARETTS/MONTH Alcohol intake: current Drinks per week: 12 Alcohol use details: 12-20 BEERS/WEEK Substance use: never Substance use type: does not use Do You Feel Safe in your Home?: Yes Lack of Transportation: No Lack of Food: Never True Current Housing: I Have Housing Concerned About Future Housing: No Difficulty Paying Gas/Electric Bills: No Difficulty Paying for Meds: No Currently Unemployed: No Education: High School Diploma/GED Difficulty w/ Childcare or Family Care: No Living arrangements: with family Additional living arrangements comments: Gender identity (if verbalized by the patient): Male Spiritual care concerns: No Anes - Eval Final PreProcedure Day of Procedure 03/13/25 07:06 Patient weight: overweight Lungs: normal air movement Airway: Mallampati scale class II Neurological: alert and oriented Last oral intake: >/= 8 hours ASA classification: III Emergent: no Anesthetic plan: proceed Anesthesia type and monitoring: general LMA and standard monitoring Results Review: All pre-operative results and documents have been reviewed as part of the pre- operative evaluation. HTN, hyperlipidemia, hx PTCA 2019, doing excellent since, cleared by cardiology for surgery today. Ex smoker, quit 2019. Informed Consent: The patient's anesthetic plan and its attendant risks and benefits were discussed with the patient/family/POA. Questions were solicited and answers provided to the satisfaction of the patient/family/POA.
[2025-03-13] MEDS: ACETAMINOPHEN 500 MG TABLET 1000 MG PO (07:10)
--- NOTE | 2025-03-13 07:18 | WPDHPUPDATE1 ---
History and Physical Update Update Date/Time: 03/13/25 07:18 History and Physical has been reviewed, including an updated exam of the patient. There are NO changes in the patient's condition. Risks, benefits, and alternatives have been discussed and questions answered. Patient agrees to proceed with procedure.
[2025-03-13] MEDS: LACTATED RINGERS 1,000 ML 30 ML IV CONT ×2 (07:20→09:50)
[2025-03-13] MEDS: TRANEXAMIC ACID 1,000MG/ISO100 1,000 MG/100 ML BAG 200 MG IVPB (07:20)
[2025-03-13] MEDS: ceFAZolin 2 GM in SODIUM CHLORIDE 0.9% IV 50 ML 100 ML IVPB (07:45)
[2025-03-13] MEDS: SODIUM CHLORIDE 0.9% IV 37.7 ML, MORPHINE SULFATE INJ (*CRX) 2 MG, ROPivacaine HCL 1% 2... INFILTRATE (08:32)
[2025-03-13] MEDS: TRANEXAMIC ACID 1,000 MG/10 ML AMPUL 1000 MG IV PUSH (09:24)
--- NOTE | 2025-03-13 09:29 | P.OP_ITS ---
Procedure Note - Detailed Date of Procedure 03/13/25 Pre-op Diagnosis Right knee degenerative arthritis. Post-op Diagnosis Same Procedure Performed Custom total knee arthroplasty, right. Surgeon Reyes Carney MD Anesthesia General Findings Valgus disease with IT band and posterior capsule release. Description of Procedure Preoperative antibiotics were given. The limb was prepped and draped in the usual sterile fashion with a well-padded tourniquet high on the thigh. The limb was exsanguinated and the tourniquet inflated to 300 mmHg during exposure. A longitudinal incision was created just medial to the patella. A trivector approach to the knee was performed. Arthrotomy was taken down through the joint capsule. No significant releases were initially taken. The femur was exposed and the F1 jig was applied. The coring tool was used to remove the cartilage for the F2 jig to sit flush with the bone. The jig was pinned and the distal cut carefully taken. Caliper measurements confirmed appropriate bony resections according to the preoperative templated plan. The F4 cutting jig for the femur was applied, at the standard rotation. The AP and anterior chamfer cuts were taken. The F5 jig was applied and the posterior chamfer cuts were taken. The tibia was prepared using the T1 jig, after removing cartilage for the jig contact points. Proper alignment was checked with the alignment jaren. The tibia was cut using the T1u guide. Gap balancing was performed. Gap measurements were taken and the knee was trialed. Excellent alignment and soft tissue balancing was confirmed. The posterior cruciate ligament was recessed along the proximal tibia. The patella was cut for resurfacing. Three lug holes were drilled. Meniscal remnants were removed. The trial components were assembled. Excellent range of motion and proper soft tissue balancing were confirmed throughout the full range of motion. Patellar tracking was excellent. The knee was copiously irrigated periodically throughout the procedure. The real implants were cemen bessy into position. Excess cement was carefully removed. The wound was closed in layers with interrupted #1 Vicryl suture, 2-0 strata fix suture, 0 strata fix suture, 2-0 strata fix suture. Steri-Strips placed on the skin with the knee flexed. Sterile bulky dressing applied. The patient was brought to the recovery room in stable condition. There were no complications. Implants Conformis Custom total knee arthroplasty. Cemented. Cruciate retaining. 7A insert. 38 mm oval patella. Estimated Blood Loss 100 Drains No Complications No immediate complications Condition Stable Disposition PACU [facility] Billing Surgery - Charge Forward: Surgery Billing
[2025-03-13] MEDS: fentaNYL CITRATE INJ (*CRX) 100 MCG/2 ML VIAL 25 MCG IV PUSH ×2 (10:45→10:50)
[2025-03-13] MEDS: ACETAMINOPHEN 325 MG TABLET 650 MG PO ×3 (11:43→23:57)
--- NOTE | 2025-03-13 11:56 | ADMGEN ---
This patient, David Canales, was admitted to [facility] S[facility] Room 316-01. Patient/family oriented to hospital policies and general routines including ID bracelet, bed and alarms, visiting hours, pain management, procedures, bathroom and other care routines, personal items, smoking policy, room service/diet, and visiting hours. Information on how to activate the Rapid Response Team has been discussed. Patient/Family are encouraged to report perceived risks to care and to ask questions if they do not understand what they are told or what they should do. Report from Anastasia.
[2025-03-13] MEDS: oxyCODONE/ACETAMINOPHEN (*CRX) 10-325 MG TABLET 1 TAB PO ×2 (12:37→18:16)
[2025-03-13] MEDS: ceFAZolin 2 GM/D5W 50 ML 2 GM/50 ML BAG IVPB (15:18)
[2025-03-13] MEDS: oxyCODONE/ACETAMINOPHEN (*CRX) 5-325 MG TABLET 1 TABLET PO ×2 (16:54→22:06)
[2025-03-13] MEDS: MELOXICAM 7.5 MG TABLET PO (16:54)
[2025-03-13] MEDS: SENNA/DOCUSATE SODIUM TABLET 2 TAB PO (16:54)
[2025-03-13] MEDS: carisoprodoL (*CRX) 350 MG TABLET PO (20:50)
[2025-03-14] MEDS: ceFAZolin 2 GM/D5W 50 ML 2 GM/50 ML BAG IVPB ×2 (00:08→08:09)
[2025-03-14 00:54] VITALS: BP 148/75; PULSE 80; RESP 14; TEMP 36.4; O2SAT 97
[2025-03-14] MEDS: CYCLOBENZAPRINE HCL 10 MG TABLET PO ×2 (03:58→12:08)
[2025-03-14] MEDS: oxyCODONE/ACETAMINOPHEN (*CRX) 5-325 MG TABLET 1 TABLET PO ×2 (03:59→12:07)
[2025-03-14 04:57] VITALS: BP 133/67; PULSE 64; RESP 14; TEMP 36.5; O2SAT 99
[2025-03-14] MEDS: ACETAMINOPHEN 325 MG TABLET 650 MG PO ×2 (06:15→12:03)
[2025-03-14 06:51] LABS: Anion Gap 7 mmol/L (4-12); Blood Urea Nitrogen 21 mg/dL (9-20); Calcium 8.6 mg/dL (8.4-10.2); Carbon Dioxide 24 mmol/L (22-30); Chloride 108 mmol/L (98-107); Estimated CRCL calculation 62 ml/min; Estimated Glomerular Filt Rate > 60; Glucose 94 mg/dL (65-110); Potassium 4.0 mmol/L (3.4-5.0); Sodium 139 mmol/L (137-145)
[2025-03-14] MEDS: SENNA/DOCUSATE SODIUM TABLET 2 TAB PO (08:09)
[2025-03-14] MEDS: ASPIRIN 81 MG ENTERIC TABLET PO (08:10)
[2025-03-14] MEDS: MELOXICAM 7.5 MG TABLET PO (08:10)
[2025-03-14] MEDS: MULTIVITAMINS THERAPEUTIC TAB (*BKC) 1 TABLET PO (08:11)
[2025-03-14] MEDS: oxyCODONE/ACETAMINOPHEN (*CRX) 10-325 MG TABLET 1 TAB PO (08:13)
[2025-03-14 08:57] VITALS: BP 125/65; PULSE 66; RESP 16; TEMP 36.4; O2SAT 100
[2025-03-14 09:00] VITALS: PULSE 64; RESP 14; O2SAT 99
[2025-03-14 18:54] LABS: Hematocrit 35.8 % (42.0-52.0); Hemoglobin 11.3 g/dL (14.0-18.0); Immature Granulocyte Percent A 0.2 % (0-0.5); Lymphocytes Absolute Auto 1.28 K/mm3 (0.9-3.2); Mean Corpuscular HGB Conc 31.6 g/dl (32-36); Mean Corpuscular Hemoglobin 34.7 pg (26-34); Mean Corpuscular Volume 109.8 fl (80-100); Nucleated Red Blood Cells Absolute Auto 0.000 K/mm3 (0.0-0.012); Nucleated Red Blood Cells Perc 0.0 % (0.0-0.2); Platelet Count Result 179 k/mm3 (150-375); Red Blood Count 3.26 M/mm3 (4.6-6.20); White Blood Count 9.1 K/mm3 (4.5-10.0)
[2025-03-14 19:44] LABS: Band Neutrophils Percent 0 % (0-6); Macrocytosis 1+ (NORMAL); Schistocytes None Seen
== END 2025-03-14 12:30 | disposition home or self-care (01) ==
LOC: ANHSURGERY 11:12 → ANH3MEDSUR 11:14
PROVIDERS: PCP Family Medicine Adolescent Medicine; Visit Provider Orthopaedic Surgery
PROC: (CPT 27447; principal; 2025-03-13 07:30)
DX: M17.11 Unilateral primary osteoarthritis, right knee (principal); Z72.0 Tobacco use
CPT/HCPCS: 27447; 36415; 73560; 80048; 85025; 86850; 86900; 86901; 97110; 97116; 97161; 97165; 97530; 97535; J0690; A9270; C1713; C1776; J0166; J1171; J1200; J1885; J2003; J2270; J2405; J2704; J2795; J3010; J7120; J7512